=== PATIENT | female | born 1945 | race Caucasian/White ===

== ENCOUNTER 2017-10-10 13:38 | Emergency (ER) | payer OTHER, MEDICARE ==
[~2017-10-10] VITALS: Ht 175.3 cm; Wt 85.7 kg
--- OUTSIDE RECORDS SUMMARY | 2017-10-10 13:44 | XMS REPORT ---
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 Name Role Phone Galdino Lim PCP Unavailable Allergies and Adverse Reactions Name Reaction Notes NO KNOWN DRUG ALLERGIES Plan of Treatment Planned Activity Comments Planned Date Planned Time Plan/Goal COMPLETE CBC W/AUTO DIFF WBC 09/18/2015 12:00 AM COMPREHEN METABOLIC PANEL 09/18/2015 12:00 AM LIPID PANEL 09/18/2015 12:00 AM GLYCOSYLATED HEMOGLOBIN TEST 09/18/2015 12:00 AM Medications Active Name Start Date Estimated Completion Date SIG Comments Fish Oil 1,000 mg oral capsule take 2 capsules by oral route daily magnesium 100 mg oral capsule take 1 capsule by oral route daily Crestor 5 mg oral tablet take 1 tablet (5 mg) by oral route once daily Onglyza 5 mg oral tablet take 1 tablet (5 mg) by oral route once daily for 30 days metformin 500 mg oral tablet 02/27/2014 TAKE 1 TABLET BY MOUTH ONCE A DAY IN THE MORNING AND 2 IN THE EVENING metformin 500 mg oral tablet 08/01/2014 TAKE 1 TABLET BY MOUTH IN THE MORNING AND 2 TABS IN THE EVENING Tricor 145 mg oral tablet 08/13/2014 take 1 tablet (145 mg) by oral route once daily for 90 days Accu-Chek Compact Plus Test miscellaneous strip 10/01/2014 test BS daily lisinopril-hydrochlorothiazide 20-25 mg oral tablet 10/09/2014 TAKE 1 TABLET ONCE A DAY IN THE MORNING Zetia 10 mg oral tablet 10/09/2014 01/02/2016 TAKE 1 TABLET BY MOUTH ONCE A DAY Lexapro 10 mg oral tablet 12/23/2014 12/18/2015 take 1 tablet by oral route daily for 90 days metformin 500 mg oral tablet 12/31/2014 TAKE 1 TABLET BY MOUTH IN THE MORNING AND 2 TABS IN THE EVENING Farxiga 10 mg oral tablet 04/28/2015 take 1 tablet (10 mg) by oral route once daily in the morning Lexapro 20 mg oral tablet 05/01/2015 take 1 tablet (20 mg) by oral route once daily for 90 days metformin 500 mg oral tablet 05/30/2015 TAKE 1 TABLET BY MOUTH IN THE MORNING AND 2 TABS IN THE EVENING cyclobenzaprine 10 mg oral tablet 06/05/2015 TAKE ONE TABLET BY MOUTH EVERY 8 HOURS NEEDED fenofibrate nanocrystallized 145 mg oral tablet 09/09/2015 TAKE 1 TABLET BY MOUTH ONCE A DAY Name Start Date Expiration Date SIG Comments Kayexalate Oral Powder 03/10/2010 03/11/2010 take 30 gms today. Flexeril 10 mg oral tablet 09/07/2010 01/05/2011 take 1 tablet (10 mg) by oral route 3 times per day for 30 days cyclobenzaprine 10 mg oral tablet 09/06/2011 10/06/2011 TAKE 1 TABLET BY MOUTH THREE TIMES A DAY Zithromax Z-Tyrese 250 mg oral tablet 10/18/2011 10/28/2011 take 2 tablets (500 mg) by oral route once daily for 1 day then 1 tablet (250 mg) by oral route once daily for 4 days Accu-Chek Compact Test Miscellaneous Strip 01/03/2012 02/02/2012 CHECK ONCE DAILY amoxicillin 500 mg oral capsule 01/31/2012 02/10/2012 take 2 capsules by oral route 3 times a day for 5 days lisinopril-hydrochlorothiazide 20-25 mg oral tablet 03/14/2012 04/13/2012 TAKE 1 TABLET ONCE A DAY IN THE MORNING Accu-Chek Softclix Lancets Miscellaneous Misc 05/30/2012 05/20/2014 test BS dailyICD-9 250.00 Trilipix 135 mg oral capsule,delayed release(DR/EC) 08/09/2012 09/08/2012 TAKE 1 CAPSULE BY MOUTH ONCE A DAY metformin 500 mg oral tablet 08/06/2013 09/05/2013 TAKE 1 TABLET BY MOUTH DAILY IN THE MORNING AND 2 IN THE EVENING Tricor 145 mg oral tablet 10/17/2013 10/12/2014 take 1 tablet (145 mg) by oral route once daily for 90 days Discontinued Name Start Date Discontinued Date SIG Comments potassium 99 mg oral tablet 03/10/2010 take 1 tablet by oral route daily Hair Vitamins Oral Tablet 05/18/2013 take 1 tablet by oral route once daily with food indomethacin 50 mg oral capsule 03/05/2010 05/18/2013 take 1 capsule by oral route 3 times a day as needed Lipitor 20 mg oral tablet 09/07/2010 07/26/2011 take 1 tablet (20 mg) by once a week. Crestor 10 mg oral tablet 05/24/2011 07/26/2011 take 1 tablet by oral route every other day tramadol 50 mg oral tablet 07/26/2011 05/18/2013 take 1 tablet (50 mg) by oral route every 4-6 hours as needed Zetia 10 mg oral tablet 10/04/2012 take 1 tablet (10 mg) by oral route once daily deleted Lipitor 20 mg oral tablet 03/16/2013 06/06/2013 take 1 tablet (20 mg) by oral route once daily Januvia 100 mg oral tablet 06/06/2013 09/09/2014 take 1 tablet (100 mg) by oral route once daily Zithromax Z-Tyrese 250 mg oral tablet 09/12/2013 10/17/2013 take 2 tablets (500 mg) by oral route once daily for 1 day then 1 tablet (250 mg) by oral route once daily for 4 days Problem List Description Status Onset Diabetes Mellitus, Type II Active Heart disease Active Hypertension Active Hyperlipidemia Active Vital Signs Date Time BP-Sys(mm[Hg] BP-Rebecca(mm[Hg]) HR(bpm) RR(rpm) Temp WT HT HC BMI BSA BMI Percentile O2 Sat(%) 04/24/2015 3:34:00 PM 138 mmHg 70 mmHg 87 bpm 16 rpm 99.1 F 180 lbs 69.5 in 26.20 kg/m2 2.00 m2 96 % 12/23/2014 2:44:00 PM 118 mmHg 62 mmHg 88 bpm 18 rpm 97.1 F 182 lbs 69.5 in 26.4911 kg/m 2.012 m 10/09/2014 9:40:00 AM 152 mmHg 74 mmHg 80 bpm 18 rpm 98.2 F 186.375 lbs 69.5 in 27.13 kg/m2 2.04 m2 97 % 09/09/2014 11:09:00 AM 130 mmHg 64 mmHg 64 bpm 16 rpm 98.8 F 188 lbs 69.5 in 27.3644 kg/m 2.0449 m 03/04/2014 9:11:00 AM 134 mmHg 72 mmHg 78 bpm 18 rpm 98.1 F 187 lbs 69.5 in 27.22 kg/m2 2.04 m2 11/14/2013 9:45:00 AM 126 mmHg 72 mmHg 80 bpm 18 rpm 98.2 F 184 lbs 69.5 in 26.7822 kg/m 2.023 m 10/17/2013 8:49:00 AM 134 mmHg 72 mmHg 88 bpm 18 rpm 99.1 F 183 lbs 69.5 in 26.64 kg/m2 2.02 m2 09/12/2013 9:54:00 AM 148 mmHg 74 mmHg 94 bpm 20 rpm 97.4 F 181 lbs 69.5 in 26.3456 kg/m 2.0065 m 06/06/2013 10:13:00 AM 140 mmHg 82 mmHg 78 bpm 18 rpm 98.4 F 182 lbs 69.5 in 26.49 kg/m2 2.01 m2 05/18/2013 9:26:00 AM 138 mmHg 82 mmHg 80 bpm 18 rpm 98.2 F 187 lbs 69.5 in 27.2189 kg/m 2.0394 m 03/16/2013 11:24:00 AM 136 mmHg 78 mmHg 80 bpm 18 rpm 98.2 F 186 lbs 69.5 in 27.07 kg/m2 2.03 m2 11/15/2012 10:07:00 AM 138 mmHg 80 mmHg 82 bpm 18 rpm 98.5 F 189 lbs 69.5 in 27.51 kg/m 2.0503 m 07/12/2012 9:45:00 AM 138 mmHg 80 mmHg 78 bpm 18 rpm 97.8 F 190 lbs 69.5 in 27.66 kg/m2 2.06 m2 03/01/2012 10:46:00 AM 128 mmHg 72 mmHg 03/01/2012 10:19:00 AM 144 mmHg 68 mmHg 82 bpm 20 rpm 98.8 F 195 lbs 69.5 in 28.38 kg/m2 2.08 m2 01/31/2012 10:24:00 AM 142 mmHg 88 mmHg 01/31/2012 9:57:00 AM 154 mmHg 78 mmHg 92 bpm 20 rpm 97.6 F 194 lbs 69.5 in 28.24 kg/m2 2.08 m2 2011 10:04:00 AM 160 mmHg 78 mmHg 82 bpm 20 rpm 99.3 F 197 lbs 69.5 in 28.6744 kg/m 2.0933 m 10/18/2011 9:15:00 AM 154 mmHg 80 mmHg 82 bpm 18 rpm 99 F 196 lbs 69.5 in 28.53 kg/m2 2.09 m2 07/26/2011 2:58:00 PM 130 mmHg 72 mmHg 72 bpm 20 rpm 98.5 F 198 lbs 69.5 in 28.82 kg/m 2.0986 m 05/24/2011 9:36:00 AM 136 mmHg 82 mmHg 88 bpm 20 rpm 98.4 F 196 lbs 09/07/2010 9:39:00 AM 140 mmHg 76 mmHg 88 bpm 20 rpm 98.4 F 194 lbs 03/05/2010 1:54:00 PM 120 mmHg 76 mmHg 68 bpm 18 rpm 97.9 F 193.312 lbs 02/11/2010 8:50:00 AM 148 mmHg 88 mmHg 82 bpm 16 rpm 97.9 F 193 lbs Social History Name Description Comments denies alcohol use lives alone Tobacco Never smoker retired History of Procedures Date Ordered Description Order Status 07/04/2015 12:00 AM MAMMOGRAM BOTH BREASTS Returned 10/18/2011 12:00 AM COMPLETE CBC W/AUTO DIFF WBC Reviewed 10/18/2011 12:00 AM COMPREHEN METABOLIC PANEL Reviewed 10/18/2011 12:00 AM LIPID PANEL Reviewed 10/18/2011 12:00 AM GLYCOSYLATED HEMOGLOBIN TEST Reviewed 2011 12:[address] SOFT TISSUE NECK W/DYE Reviewed 01/31/2012 12:00 AM COMPLETE CBC W/AUTO DIFF WBC Reviewed 01/31/2012 12:00 AM COMPREHEN METABOLIC PANEL Reviewed 01/31/2012 12:00 AM LIPID PANEL Reviewed 01/31/2012 12:00 AM GLYCOSYLATED HEMOGLOBIN TEST Reviewed 07/07/2012 12:00 AM LIPID PANEL Reviewed 07/07/2012 12:00 AM GLYCOSYLATED HEMOGLOBIN TEST Reviewed 07/12/2012 12:00 AM X-RAY EXAM TRUNK SPINE 2 VWS Reviewed 07/20/2012 12:00 AM MAMMOGRAM SCREENING Returned 10/30/2012 12:00 AM COMPLETE CBC W/AUTO DIFF WBC Reviewed 10/30/2012 12:00 AM COMPREHEN METABOLIC PANEL Reviewed 10/30/2012 12:00 AM LIPID PANEL Reviewed 10/30/2012 12:00 AM GLYCOSYLATED HEMOGLOBIN TEST Reviewed 03/13/2013 12:00 AM COMPLETE CBC W/AUTO DIFF WBC Reviewed 03/13/2013 12:00 AM COMPREHEN METABOLIC PANEL Reviewed 03/13/2013 12:00 AM LIPID PANEL Reviewed 03/13/2013 12:00 AM GLYCOSYLATED HEMOGLOBIN TEST Reviewed 01/22/2010 12:00 AM ELECTROCARDIOGRAM COMPLETE Reviewed 01/22/2010 12:00 AM GLYCOSYLATED HEMOGLOBIN TEST Reviewed 07/10/2013 12:00 AM MAMMOGRAM BOTH BREASTS Reviewed 09/03/2013 12:00 AM COMPLETE CBC W/AUTO DIFF WBC Reviewed 09/03/2013 12:00 AM COMPREHEN METABOLIC PANEL Reviewed 09/03/2013 12:00 AM LIPID PANEL Reviewed 09/03/2013 12:00 AM GLYCOSYLATED HEMOGLOBIN TEST Reviewed 03/05/2010 12:00 AM METABOLIC PANEL TOTAL CA Reviewed 03/05/2010 12:00 AM COMPLETE CBC W/AUTO DIFF WBC Reviewed 03/05/2010 12:00 AM ASSAY OF BLOOD/URIC ACID Reviewed 02/11/2014 12:00 AM COMPLETE CBC W/AUTO DIFF WBC Reviewed 02/11/2014 12:00 AM COMPREHEN METABOLIC PANEL Reviewed 02/11/2014 12:00 AM LIPID PANEL Reviewed 02/11/2014 12:00 AM GLYCOSYLATED HEMOGLOBIN TEST Reviewed 10/14/2009 12:00 AM IMMUNIZATION ADMIN Reviewed 10/14/2009 12:00 AM TD VACCINE NO PRSRV 7/> IM Reviewed 09/02/2014 12:00 AM COMPLETE CBC W/AUTO DIFF WBC Reviewed 09/02/2014 12:00 AM COMPREHEN METABOLIC PANEL Reviewed 09/02/2014 12:00 AM LIPID PANEL Reviewed 09/02/2014 12:00 AM GLYCOSYLATED HEMOGLOBIN TEST Reviewed 04/22/2015 12:00 AM COMPLETE CBC W/AUTO DIFF WBC Reviewed 04/22/2015 12:00 AM COMPREHEN METABOLIC PANEL Reviewed 04/22/2015 12:00 AM LIPID PANEL Reviewed 04/22/2015 12:00 AM GLYCOSYLATED HEMOGLOBIN TEST Reviewed Results Summary Data and Description Results 10/21/2011 8:10 AM WBC 5.3 RBC 4.08 HGB 12.60 g/dLHCT 37.70 %MCV 92.0 fLMCH 30.90 pgMCHC 33.40 g/dLRDW CV 13.40 %MPV 10.70 fLPLT 322 %NEUT 46.80 %%LYMP 40.60 %%MONO 6.0 %%EOS 5.30 %%BASO 1.30 %#NEUT 2.48 #LYMP 2.15 #MONO 0.32 #EOS 0.28 #BASO 0.07 GLUCOSE 136.0 mg/dLSODIUM 139.0 mmol/LPOTASSIUM 4.20 mmol/ LCHLORIDE 103.0 mmol/LCO2 26.0 mmol/LBUN 17.0 mg/dLCREATININE 0.80 mg/dLSGOT/ AST 18.0 IU/LSGPT/ALT 20.0 IU/LALK PHOS 51.0 IU/LTOTAL PROTEIN 6.10 g/dLALBUMIN 4.10 g/dLTOTAL BILI 0.40 mg/dLCALCIUM 9.40 mg/dLeGFR >60 mL/min/1.73 [id number] 256.0 mg/dLCHOLESTEROL 244.0 mg/dLHDL 40.0 mg/dLLDL (CALC) 153.0 mg/dL 03/01/2012 8:35 AM WBC 5.3 RBC 4.14 HGB 12.70 g/dLHCT 38.10 %MCV 92.0 fLMCH 30.70 pgMCHC 33.30 g/dLRDW CV 13.30 %MPV 10.60 fLPLT 306 %NEUT 45.70 %%LYMP 38.80 %%MONO 4.90 %%EOS 9.30 %%BASO 1.30 %#NEUT 2.41 #LYMP 2.05 #MONO 0.26 #EOS 0.49 #BASO 0.07 GLUCOSE 146.0 mg/dLSODIUM 139.0 mmol/LPOTASSIUM 4.30 mmol/ LCHLORIDE 102.0 mmol/LCO2 25.0 mmol/LBUN 14.0 mg/dLCREATININE 0.80 mg/dLSGOT/ AST 15.0 IU/LSGPT/ALT 20.0 IU/LALK PHOS 49.0 IU/LTOTAL PROTEIN 5.90 g/dLALBUMIN 4.20 g/dLTOTAL BILI 0.30 mg/dLCALCIUM 9.60 mg/dLeGFR 60 TRIGLYCERIDES 247.0 mg/ dLCHOLESTEROL 239.0 mg/dLHDL 45.0 mg/dLLDL (CALC) 145.0 mg/dL 07/10/2012 8:15 AM WBC 5.6 RBC 4.26 HGB 13.30 g/dLHCT 39.80 %MCV 93.0 fLMCH 31.20 pgMCHC 33.40 g/dLRDW CV 13.40 %MPV 10.60 fLPLT 335 %NEUT 44.60 %%LYMP 39.40 %%MONO 6.60 %%EOS 8.50 %%BASO 0.90 %#NEUT 2.51 #LYMP 2.22 #MONO 0.37 #EOS 0.48 #BASO 0.05 GLUCOSE 147.0 mg/dLSODIUM 138.0 mmol/LPOTASSIUM 4.30 mmol/ LCHLORIDE 101.0 mmol/LCO2 26.0 mmol/LBUN 14.0 mg/dLCREATININE 0.90 mg/dLSGOT/ AST 18.0 IU/LSGPT/ALT 25.0 IU/LALK PHOS 54.0 IU/LTOTAL PROTEIN 6.40 g/dLALBUMIN 4.20 g/dLTOTAL BILI 0.30 mg/dLCALCIUM 9.90 mg/dLeGFR 60 TRIGLYCERIDES 289.0 mg/ dLCHOLESTEROL 231.0 mg/dLHDL 45.0 mg/dLLDL (CALC) 128.0 mg/dL 11/06/2012 8:35 AM GLUCOSE 149.0 mg/dLSODIUM 139.0 mmol/LPOTASSIUM 4.30 mmol/ LCHLORIDE 101.0 mmol/LCO2 24.0 mmol/LBUN 14.0 mg/dLCREATININE 0.80 mg/dLSGOT/ AST 19.0 IU/LSGPT/ALT 23.0 IU/LALK PHOS 61.0 IU/LTOTAL PROTEIN 6.50 g/dLALBUMIN 4.30 g/dLTOTAL BILI 0.40 mg/dLCALCIUM 9.80 mg/dLeGFR 60 TRIGLYCERIDES 265.0 mg/ dLCHOLESTEROL 222.0 mg/dLHDL 39.0 mg/dLLDL (CALC) 130.0 mg/dLWBC 5.6 RBC 4.24 HGB 13.20 g/dLHCT 38.90 %MCV 92.0 fLMCH 31.10 pgMCHC 33.90 g/dLRDW CV 13.20 % MPV 10.40 fLPLT 348 %NEUT 50.30 %%LYMP 38.80 %%MONO 6.80 %%EOS 3.40 %%BASO 0.70 %#NEUT 2.81 #LYMP 2.17 #MONO 0.38 #EOS 0.19 #BASO 0.04 03/14/2013 9:08 AM WBC 5.5 RBC 4.16 HGB 12.60 g/dLHCT 38.20 %MCV 92.0 fLMCH 30.30 pgMCHC 33.0 g/dLRDW CV 13.50 %MPV 10.80 fLPLT 335 %NEUT 48.30 %%LYMP 42.40 %%MONO 5.30 %%EOS 3.30 %%BASO 0.70 %#NEUT 2.63 #LYMP 2.31 #MONO 0.29 #EOS 0.18 #BASO 0.04 GLUCOSE 136.0 mg/dLSODIUM 139.0 mmol/LPOTASSIUM 4.30 mmol/ LCHLORIDE 101.0 mmol/LCO2 27.0 mmol/LBUN 15.0 mg/dLCREATININE 0.80 mg/dLSGOT/ AST 18.0 IU/LSGPT/ALT 19.0 IU/LALK PHOS 53.0 IU/LTOTAL PROTEIN 6.20 g/dLALBUMIN 3.90 g/dLTOTAL BILI 0.40 mg/dLCALCIUM 9.40 mg/dLeGFR 60 TRIGLYCERIDES 217.0 mg/ dLCHOLESTEROL 187.0 mg/dLHDL 43.0 mg/dLLDL (CALC) 101.0 mg/dL 09/04/2013 9:08 AM WBC 5.4 RBC 4.18 HGB 12.90 g/dLHCT 38.50 %MCV 92.0 fLMCH 30.90 pgMCHC 33.50 g/dLRDW CV 13.60 %MPV 11.0 fLPLT 342 %NEUT 50.60 %%LYMP 40.40 %%MONO 4.70 %%EOS 3.0 %%BASO 1.30 %#NEUT 2.71 #LYMP 2.16 #MONO 0.25 #EOS 0.16 #BASO 0.07 GLUCOSE 119.0 mg/dLSODIUM 137.0 mmol/LPOTASSIUM 4.60 mmol/ LCHLORIDE 101.0 mmol/LCO2 26.0 mmol/LBUN 15.0 mg/dLCREATININE 0.80 mg/dLSGOT/ AST 19.0 IU/LSGPT/ALT 24.0 IU/LALK PHOS 59.0 IU/LTOTAL PROTEIN 6.20 g/dLALBUMIN 4.30 g/dLTOTAL BILI 0.50 mg/dLCALCIUM 10.0 mg/dLeGFR >60 mL/min/1.73 [id number] 182.0 mg/dLCHOLESTEROL 192.0 mg/dLHDL 45.0 mg/dLLDL (CALC) 111.0 mg/dLEst Avg Glucose 157.1 mg/dL 02/20/2014 9:20 AM GLUCOSE 122.0 mg/dLSODIUM 137.0 mmol/LPOTASSIUM 4.30 mmol/ LCHLORIDE 103.0 mmol/LCO2 26.0 mmol/LBUN 16.0 mg/dLCREATININE 0.80 mg/dLSGOT/ AST 22.0 IU/LSGPT/ALT 21.0 IU/LALK PHOS 56.0 IU/LTOTAL PROTEIN 6.40 g/dLALBUMIN 4.10 g/dLTOTAL BILI 0.60 mg/dLCALCIUM 9.30 mg/dLeGFR 60 TRIGLYCERIDES 176.0 mg/ dLCHOLESTEROL 187.0 mg/dLHDL 48.0 mg/dLLDL (CALC) 104.0 mg/dLEst Avg Glucose 165.7 mg/dLWBC 4.8 RBC 4.29 HGB 13.20 g/dLHCT 39.20 %MCV 91.0 fLMCH 30.80 pgMCHC 33.70 g/dLRDW CV 14.0 %MPV 11.70 fLPLT 285 %NEUT 53.40 %%LYMP 36.70 %% MONO 6.20 %%EOS 2.70 %%BASO 1.0 %#NEUT 2.57 #LYMP 1.77 #MONO 0.30 #EOS 0.13 # BASO 0.05 09/04/2014 8:38 AM WBC 5.6 RBC 4.24 HGB 12.90 g/dLHCT 39.40 %MCV 93.0 fLMCH 30.40 pgMCHC 32.70 g/dLRDW CV 13.50 %MPV 10.70 fLPLT 297 %NEUT 51.10 %%LYMP 38.60 %%MONO 5.40 %%EOS 3.80 %%BASO 1.10 %#NEUT 2.86 #LYMP 2.16 #MONO 0.30 #EOS 0.21 #BASO 0.06 Est Avg Glucose 165.7 mg/dLGLUCOSE 135.0 mg/dLSODIUM 137.0 mmol/ LPOTASSIUM 4.20 mmol/LCHLORIDE 101.0 mmol/LCO2 26.0 mmol/LBUN 22.0 mg/ dLCREATININE 0.90 mg/dLSGOT/AST 18.0 IU/LSGPT/ALT 19.0 IU/LALK PHOS 52.0 IU/ LTOTAL PROTEIN 6.40 g/dLALBUMIN 4.10 g/dLTOTAL BILI 0.10 mg/dLCALCIUM 9.40 mg/ dLeGFR 60 TRIGLYCERIDES 159.0 mg/dLCHOLESTEROL 182.0 mg/dLHDL 36.0 mg/dLLDL ( CALC) 114.0 mg/dL 12/20/2014 8:38 AM GLUCOSE 138.0 mg/dLSODIUM 139.0 mmol/LPOTASSIUM 4.40 mmol/ LCHLORIDE 102.0 mmol/LCO2 26.0 mmol/LBUN 22.0 mg/dLCREATININE 0.90 mg/dLSGOT/ AST 18.0 IU/LSGPT/ALT 18.0 IU/LALK PHOS 54.0 IU/LTOTAL PROTEIN 6.40 g/dLALBUMIN 4.20 g/dLTOTAL BILI 0.40 mg/dLCALCIUM 9.60 mg/dLeGFR >60 mL/min/1.73 m2WBC 5.6 RBC 4.46 HGB 13.30 g/dLHCT 41.40 %MCV 93.0 fLMCH 29.80 pgMCHC 32.10 g/dLRDW CV 13.80 %MPV 10.60 fLPLT 323 %NEUT 54.60 %%LYMP 37.20 %%MONO 4.10 %%EOS 3.20 %% BASO 0.90 %#NEUT 3.08 #LYMP 2.10 #MONO 0.23 #EOS 0.18 #BASO 0.05 Est Avg Glucose 174.3 mg/dLTRIGLYCERIDES 257.0 mg/dLCHOLESTEROL 192.0 mg/dLHDL 41.0 mg/ dLLDL (CALC) 100.0 mg/dL 04/23/2015 8:17 AM WBC 6.0 RBC 4.43 HGB 13.50 g/dLHCT 40.60 %MCV 92.0 fLMCH 30.50 pgMCHC 33.30 g/dLRDW CV 14.0 %MPV 10.40 fLPLT 315 %NEUT 58.10 %%LYMP 32.20 %%MONO 5.50 %%EOS 3.0 %%BASO 1.20 %#NEUT 3.51 #LYMP 1.94 #MONO 0.33 #EOS 0.18 #BASO 0.07 TRIGLYCERIDES 200.0 mg/dLCHOLESTEROL 191.0 mg/dLHDL 43.0 mg/ dLLDL (CALC) 108.0 mg/dLGLUCOSE 141.0 mg/dLSODIUM 137.0 mmol/LPOTASSIUM 4.10 mmol/LCHLORIDE 101.0 mmol/LCO2 24.0 mmol/LBUN 22.0 mg/dLCREATININE 0.80 mg/ dLSGOT/AST 18.0 IU/LSGPT/ALT 16.0 IU/LALK PHOS 59.0 IU/LTOTAL PROTEIN 6.20 g/ dLALBUMIN 4.0 g/dLTOTAL BILI 0.50 mg/dLCALCIUM 9.30 mg/dLeGFR >60 mL/min/1.73 [id number]. Avg Glu (eAG) 154 mg/dL History Of Immunizations Not available. History of Past Illness Name Date of Onset Comments Diabetes Mellitus, Type II Hypertension Heart disease Td Oct 14 2009 4:38PM pre-operative examination, unspecified Jan 22 2010 4:46PM Diabetes Mellitus, Type II Jan 22 2010 5:05PM Preoperative Examination Feb 11 2010 8:53AM Hyperlipidemia Diabetes Mellitus, Type II Mar 05 2010 1:56PM Gout Mar 05 2010 1:56PM Hyperlipidemia, unspecified Sep 07 2010 9:41AM Diabetes Mellitus, Type II Sep 07 2010 9:41AM Hypertension May 24 2011 9:36AM Hyperlipidemia, unspecified May 24 2011 9:36AM Diabetes Mellitus, Type II May 24 2011 9:36AM Hyperlipidemia, unspecified Jul 26 2011 2:57PM Diabetes Mellitus, Type II Jul 26 2011 2:57PM Low Back Pain Jul 26 2011 2:57PM Diabetes Mellitus, Type II Oct 18 2011 9:19AM Lymph Nodes, Enlarged, neck 2011 10:08AM Diabetes Mellitus, Type II Jan 31 2012 10:03AM Hypertension Jan 31 2012 10:03AM Essential Hypertension Mar 01 2012 10:22AM Hyperlipidemia Mar 01 2012 10:22AM Diabetes Mellitus, Type II Mar 01 2012 10:22AM Otitis Media, Acute Jan 31 2012 10:03AM Hypertension Jul 07 2012 11:40AM Diabetes Mellitus, Type II Jul 07 2012 11:40AM Hyperlipidemia Jul 07 2012 11:40AM Back Pain with Radiation Jul 12 2012 9:50AM Screening Mammogram Jul 20 2012 8:49AM Hypertension Oct 30 2012 9:29AM Diabetes Mellitus, Type II Oct 30 2012 9:29AM Hyperlipidemia Oct 30 2012 9:29AM Diabetes Mellitus, Type II Nov 15 2012 10:10AM Hypertension Nov 15 2012 10:10AM Hyperlipidemia Nov 15 2012 10:10AM Hypertension Mar 13 2013 11:55AM Diabetes Mellitus, Type II Mar 13 2013 11:55AM Hyperlipidemia Mar 13 2013 11:55AM Hyperlipidemia, unspecified Mar 16 2013 11:26AM Diabetes Mellitus, Type II Mar 16 2013 11:26AM Diabetes Mellitus, Type II May 18 2013 9:31AM Diabetes Mellitus, Type II Jun 06 2013 10:17AM Screening Mammogram Jul 10 2013 11:32AM Hypertension Sep 03 2013 10:04AM Diabetes Mellitus, Type II Sep 03 2013 10:04AM Hyperlipidemia Sep 03 2013 10:04AM Upper Respiratory Infection Sep 12 2013 9:59AM Hyperlipidemia, unspecified Sep 12 2013 9:59AM Diabetes Mellitus, Type II Sep 12 2013 9:59AM Hyperlipidemia, unspecified Oct 17 2013 8:54AM Diabetes Mellitus, Type II Oct 17 2013 8:54AM Depression and anxiety Oct 17 2013 8:54AM Depression and anxiety Nov 14 2013 9:51AM Hypertension Feb 11 2014 1:55PM Diabetes Mellitus, Type II Feb 11 2014 1:55PM Hyperlipidemia Feb 11 2014 1:55PM Hypertension Mar 04 2014 9:16AM Hyperlipidemia, unspecified Mar 04 2014 9:16AM Diabetes Mellitus, Type II, Uncontrolled Mar 04 2014 9:16AM Depression and anxiety Mar 04 2014 9:16AM Coronary Artery Disease Sep 02 2014 2:12PM Hypertension Sep 02 2014 2:12PM Diabetes Mellitus, Type II Sep 02 2014 2:12PM Hyperlipidemia, unspecified Sep 09 2014 11:15AM Diabetes Mellitus, Type II Sep 09 2014 11:15AM Hypertension Oct 09 2014 9:44AM Hyperlipidemia, unspecified Oct 09 2014 9:44AM Diabetes Mellitus, Type II Oct 09 2014 9:44AM Hyperlipidemia, unspecified Dec 23 2014 2:49PM Diabetes Mellitus, Type II Dec 23 2014 2:49PM Depression and anxiety Dec 23 2014 2:49PM Hypertension Apr 22 2015 3:57PM Diabetes Mellitus, Type II Apr 22 2015 3:57PM Hyperlipidemia Apr 22 2015 3:57PM Diabetes Mellitus, Type II Apr 24 2015 3:36PM Special screening for malignant neoplasms; breast; other screening mammogram Jul 04 2015 11:56AM Hypertension Sep 18 2015 2:30PM Diabetes Mellitus, Type II Sep 18 2015 2:30PM Hyperlipidemia Sep 18 2015 2:30PM Payers Insurance Name Company Name Plan Name Plan Number Policy Number Policy Group Number Start Date Medicare Part A Medicare Part A [id number] N/A [employer] [id number] Thursday, 2014 [facility] [id number] N/A [employer] Medicare Supplement [employer] [id number] Sunday, 2013 [employer] [facility] [id number] November [facility] [id number] Saturday, 2009 [employer] [facility] [id number] Tuesday, 2011 Medicare Part B [employer] [place] [id number] Monday, 2011 [employer] [id number] Tuesday, 2011 History of Encounters Visit Date Visit Type Provider 04/24/2015 Office visit Galdino Lim MD 12/23/2014 Office visit Galdino Lim MD 10/09/2014 Office visit Galdino Lim MD 09/09/2014 Office visit Galdino Lim MD 03/04/2014 Office visit Galdino Lim MD 11/14/2013 Office visit Galdino Lim MD 10/17/2013 Office visit Galdino Lim MD 09/12/2013 Office visit Galdino Lim MD 06/06/2013 Office visit Galdino Lim MD 05/18/2013 Office visit Galdino Lim MD 03/16/2013 Office visit Galdino Lim MD 11/15/2012 Office visit Galdino Lim MD 07/12/2012 Office visit Galdino Lim MD 03/01/2012 Office visit Galdino Lim MD 01/31/2012 Office visit Galdino Lim MD 2011 Office visit Galdino Lim MD 10/18/2011 Office visit Galdino Lim MD 07/26/2011 Office visit Galdino Lim MD 05/24/2011 Office visit Galdino Lim MD 09/07/2010 Office visit Galdino Lim MD 03/05/2010 Office visit Galdino Lim MD 02/11/2010 Laboratory Severino Lopez MD 02/11/2010 Office visit Galdino Lim MD 10/14/2009 Nurse visit Galdino Lim MD 08/25/2009 Office visit Galdino Lim MD 08/20/2009 Laboratory Galdino Lim MD
--- OUTSIDE RECORDS SUMMARY | 2017-10-10 13:45 | XMS REPORT ---
Author Author Galdino iLm [facility] Address [address] [place], [place] [id number] Care Team Providers Care Squad Boss Name Role Phone Galdino Lim PCP Unavailable Galdino Lim PreferredProvider Unavailable Allergies and Adverse Reactions Name Reaction Notes NO KNOWN DRUG ALLERGIES Plan of Treatment Planned Activity Comments Planned Date Planned Time Plan/Goal MRI LOWER EXT ANY JOINT W/O CONTRAST 12/29/2015 12:00 AM CMP (comprehensive metabolic panel) 10/14/2016 12:00 AM CBC with Auto 07/21/2017 12:00 AM CMP (comprehensive metabolic panel) 07/21/2017 12:00 AM Lipid profile 07/21/2017 12:00 AM Hemoglobin A1C 07/21/2017 12:00 AM Medications Active Name Start Date Estimated Completion Date SIG Comments Onglyza 5 mg oral tablet take 1 tablet (5 mg) by oral route once daily for 30 days metformin 500 mg oral tablet 02/27/2014 TAKE 1 TABLET BY MOUTH ONCE A DAY IN THE MORNING AND 2 IN THE EVENING metformin 500 mg oral tablet 08/01/2014 TAKE 1 TABLET BY MOUTH IN THE MORNING AND 2 TABS IN THE EVENING lisinopril-hydrochlorothiazide 20-25 mg oral tablet 10/09/2014 TAKE 1 TABLET ONCE A DAY IN THE MORNING metformin 500 mg oral tablet 12/31/2014 TAKE 1 TABLET BY MOUTH IN THE MORNING AND 2 TABS IN THE EVENING metformin 500 mg oral tablet 05/30/2015 TAKE 1 TABLET BY MOUTH IN THE MORNING AND 2 TABS IN THE EVENING cyclobenzaprine 10 mg oral tablet 10/08/2015 TAKE ONE TABLET BY MOUTH EVERY 8 HOURS NEEDED Zetia 10 mg oral tablet 11/03/2015 TAKE 1 TABLET BY MOUTH ONCE A DAY metformin 500 mg oral tablet 11/24/2015 TAKE 1 TABLET BY MOUTH IN THE MORNING AND 2 TABS IN THE EVENING escitalopram oxalate 20 mg oral tablet 05/10/2016 TAKE 1 TABLET BY MOUTH ONCE A DAY metformin 500 mg oral tablet 07/05/2016 TAKE 1 TABLET BY MOUTH IN THE MORNING AND 2 TABS IN THE EVENING cyclobenzaprine 10 mg oral tablet 09/06/2016 TAKE ONE TABLET BY MOUTH EVERY 8 HOURS NEEDED fenofibrate 160 mg oral tablet 2016 10/27/2017 take 1 tablet (160 mg) by oral route once daily for 90 days Zetia 10 mg oral tablet 11/10/2016 TAKE 1 TABLET BY MOUTH ONCE A DAY Lipitor 20 mg oral tablet 11/10/2016 take 1 tablet (20 mg) by oral route once daily for 30 days lisinopril 20 mg oral tablet take 1 tablet (20 mg) by oral route once daily Lidoderm 5 % topical adhesive patch,medicated apply 1 patch by transdermal route once daily (May wear up to 12hours.) polyethylene glycol 3350 17 gram/dose oral powder take 17 gram mixed with 8 oz. water, juice, soda, coffee or tea by oral route once daily hydrocodone-acetaminophen 5-325 mg oral tablet take 1 tablet by oral route every 4 hours as needed for pain atorvastatin 10 mg oral tablet take 1 tablet (10 mg) by oral route once daily at bedtime aspirin 325 mg oral tablet take 1 tablet by oral route 2 times a day lisinopril-hydrochlorothiazide 20-25 mg oral tablet 01/18/2017 TAKE 1 TABLET BY MOUTH IN THE MORNING metformin 500 mg oral tablet 01/18/2017 TAKE 1 TABLET BY MOUTH IN THE MORNING AND 2 TABS IN THE EVENING True Metrix Glucose Meter miscellaneous [facility] [place] 02/01/2017 use as directed. Test blood sugars daily. ICD-10 E11.9 True Metrix test strips 02/01/2017 12/28/2017 test blood sugars daily. ICD-10 E11.9 True Metrix lancets 02/01/2017 test blood sugars daily. ICD-10 E11.9 fenofibrate 160 mg oral tablet 03/24/2017 TAKE 1 TABLET BY MOUTH ONCE A DAY escitalopram oxalate 20 mg oral tablet 05/23/2017 TAKE 1 TABLET BY MOUTH ONCE A DAY Januvia 100 mg oral tablet 06/07/2017 01/03/2018 take 1 tablet (100 mg) by oral route once daily for 30 days Name Start Date Expiration Date SIG Comments [...] 3 times a day for 5 days Accu-Chek Softclix Lancets Miscellaneous Mis 05/30/2012 05/20/2014 test BS dailyICD-9 250.00 Trilipix 135 mg oral capsule,delayed release(DR/EC) 08/09/2012 09/08/2012 TAKE 1 CAPSULE BY MOUTH ONCE A DAY metformin 500 mg oral tablet 08/06/2013 09/05/2013 TAKE 1 TABLET BY MOUTH DAILY IN THE MORNING AND 2 IN THE EVENING Tricor 145 mg oral tablet 10/17/2013 10/12/2014 take 1 tablet (145 mg) by oral route once daily for 90 days Zetia 10 mg oral tablet 10/09/2014 01/02/2016 TAKE 1 TABLET BY MOUTH ONCE A DAY Lexapro 10 mg oral tablet 12/23/2014 12/18/2015 take 1 tablet by oral route daily for 90 days Lipitor 20 mg oral tablet 10/08/2015 02/05/2016 take 1 tablet (20 mg) by oral route once daily for 30 days Bactrim DS 800-160 mg oral tablet 01/19/2016 01/26/2016 take 1 tablet by oral route every 12 hours for 7 days Diflucan 150 mg oral tablet 03/15/2016 03/25/2016 take 1 tablet (150 mg) by oral route once for 2 days Hylafem 05/10/2016 as directed Januvia 100 mg oral tablet 12/08/2016 12/03/2017 take 1 tablet (100 mg) by oral route once daily for 30 days citalopram 20 mg oral tablet take 2 tablets (40 mg) by oral route once daily Discontinued Name Start Date Discontinued Date SIG Comments Fish Oil 1,000 mg oral capsule 01/13/2017 take 2 capsules by oral route daily d/c'd at hospital magnesium 100 mg oral capsule 01/13/2017 take 1 capsule by oral route daily d/c'd in hospital potassium 99 mg oral tablet 03/10/2010 take [...] mg) by oral route once daily deleted lisinopril-hydrochlorothiazide 20-25 mg oral tablet 03/14/2012 01/13/2017 TAKE 1 TABLET ONCE A DAY IN THE MORNING d/c'd in hospital Lipitor 20 mg oral tablet 03/16/2013 06/06/2013 [...] oral route once daily for 4 days Tricor 145 mg oral tablet 08/13/2014 12/23/2015 take 1 tablet (145 mg) by oral route once daily for 90 days Accu-Chek Compact Plus Test miscellaneous strip 10/01/2014 02/01/2017 test BS daily Lexapro 20 mg oral tablet 05/01/2015 01/13/2017 take 1 tablet (20 mg) by oral route once daily for 90 days Lexapro 20 mg oral tablet 05/01/2015 01/13/2017 take 1 tablet (20 mg) by oral route once daily for 90 days d/c'd in hospital lisinopril-hydrochlorothiazide 20-25 mg oral tablet 01/05/2016 01/13/2017 TAKE 1 TABLET ONCE A DAY IN THE MORNING lisinopril-hydrochlorothiazide 20-25 mg oral tablet 01/05/2016 01/13/2017 TAKE 1 TABLET ONCE A DAY IN THE MORNING d/c'd at hospital sulfamethoxazole-trimethoprim 800-160 mg oral tablet 03/02/2016 03/15/2016 TAKE 1 TABLET BY MOUTH EVERY 12 HOURS FOR 7 DAYS Problem List Description Status Onset Diabetes Mellitus, Type II Active Heart disease Active Hypertension Active Hyperlipidemia Active Vital Signs Date Time BP-Sys(mm[Hg] BP-Rebecca(mm[Hg]) HR(bpm) RR(rpm) Temp WT HT HC BMI BSA BMI Percentile O2 Sat(%) 01/13/2017 11:07:00 AM 116 mmHg 68 mmHg 88 bpm 18 rpm 97.6 F 69 in 96 % 12/08/2016 11:27:00 AM 118 mmHg 70 mmHg 78 bpm 16 rpm 98.1 F 188 lbs 69 in 27.7625 kg/m 2.0375 m 97 % 10/21/2016 9:47:00 AM 128 mmHg 66 mmHg 88 bpm 18 rpm 98.2 F 183 lbs 69 in 27.02 kg/m2 2.01 m2 95 % 05/06/2016 1:31:00 PM 130 mmHg 62 mmHg 94 bpm 18 rpm 98.1 F 186.25 lbs 69 in 27.504 kg/m 2.028 m 95 % 03/15/2016 1:25:00 PM 110 mmHg 58 mmHg 93 bpm 16 rpm 98.5 F 182 lbs 69 in 26.88 kg/m2 2.00 m2 96 % 12/23/2015 9:33:00 AM 122 mmHg 70 mmHg 87 bpm 16 rpm 9.3 F 186 lbs 69 in 27.4671 kg/m 2.0267 m 98 % 12/03/2015 5:19:00 PM 132 mmHg 64 mmHg 96 bpm 18 rpm 98.5 F 184.5 lbs 69.5 in 26.85 kg/m2 2.03 m2 95 % 10/08/2015 10:08:00 AM 138 mmHg 70 mmHg 84 bpm 18 rpm 98 F 183 lbs 69.5 in 26.6367 kg/m 2.0175 m 97 % 04/24/2015 3:34:00 PM 138 mmHg 70 mmHg [...] Status 07/04/2015 12:00 AM MAMMOGRAM BOTH BREASTS Reviewed 09/18/2015 12:00 AM COMPLETE CBC W/AUTO DIFF WBC Reviewed 09/18/2015 12:00 AM COMPREHEN METABOLIC PANEL Reviewed 09/18/2015 12:00 AM LIPID PANEL Reviewed 09/18/2015 12:00 AM GLYCOSYLATED HEMOGLOBIN TEST Reviewed 12/03/2015 12:00 AM COMPLETE CBC W/AUTO DIFF WBC Reviewed 12/03/2015 12:00 AM COMPREHEN METABOLIC PANEL Reviewed 12/03/2015 12:00 AM FIBRIN DEGRADATION QUANT Reviewed 12/03/2015 12:00 AM X-RAY EXAM OF LOWER LEG Reviewed 03/15/2016 12:00 AM COMPLETE CBC W/AUTO DIFF WBC Reviewed 03/15/2016 12:00 AM COMPREHEN METABOLIC PANEL Reviewed 03/15/2016 12:00 AM GLYCOSYLATED HEMOGLOBIN TEST Reviewed 10/18/2011 12:00 AM COMPLETE CBC W/AUTO DIFF WBC Reviewed 10/18/2011 12:00 AM COMPREHEN METABOLIC PANEL Reviewed 10/18/2011 12:00 AM LIPID PANEL Reviewed 10/18/2011 12:00 AM GLYCOSYLATED HEMOGLOBIN TEST Reviewed 2011 12:[address] SOFT TISSUE NECK W/DYE Reviewed 10/14/2016 12:00 AM COMPLETE CBC W/AUTO DIFF WBC Reviewed 10/14/2016 12:00 AM LIPID PANEL Reviewed 10/14/2016 12:00 AM GLYCOSYLATED HEMOGLOBIN TEST Reviewed 01/31/2012 12:00 AM COMPLETE CBC W/AUTO DIFF WBC Reviewed 01/31/2012 12:00 AM COMPREHEN METABOLIC PANEL Reviewed 01/31/2012 12:00 AM LIPID PANEL Reviewed 01/31/2012 12:00 AM GLYCOSYLATED HEMOGLOBIN TEST Reviewed 07/07/2012 12:00 AM LIPID PANEL Reviewed 07/07/2012 12:00 AM GLYCOSYLATED HEMOGLOBIN TEST Reviewed 07/12/2012 12:00 AM X-RAY EXAM TRUNK SPINE 2 VWS Reviewed 07/20/2012 12:00 AM MAMMOGRAM SCREENING Reviewed 10/30/2012 12:00 AM ROUTINE VENIPUNCTURE Reviewed 10/30/2012 12:00 AM COMPLETE CBC W/AUTO DIFF WBC Reviewed 10/30/2012 12:00 AM COMPREHEN METABOLIC PANEL Reviewed 10/30/2012 12:00 AM LIPID PANEL Reviewed 10/30/2012 12:00 AM GLYCOSYLATED HEMOGLOBIN TEST Reviewed 03/13/2013 12:00 AM ROUTINE VENIPUNCTURE Reviewed 03/13/2013 12:00 AM COMPLETE CBC W/AUTO DIFF WBC Reviewed 03/13/2013 12:00 AM COMPREHEN METABOLIC PANEL Reviewed 03/13/2013 12:00 AM LIPID PANEL Reviewed 03/13/2013 12:00 AM GLYCOSYLATED HEMOGLOBIN TEST Reviewed 01/22/2010 12:00 AM ELECTROCARDIOGRAM COMPLETE Reviewed 01/22/2010 12:00 AM GLYCOSYLATED HEMOGLOBIN TEST Reviewed 07/10/2013 12:00 AM MAMMOGRAM BOTH BREASTS Reviewed 09/03/2013 12:00 AM ROUTINE VENIPUNCTURE Reviewed 09/03/2013 12:00 AM COMPLETE CBC W/AUTO DIFF WBC Reviewed 09/03/2013 12:00 AM COMPREHEN METABOLIC PANEL Reviewed 09/03/2013 12:00 AM LIPID PANEL Reviewed 09/03/2013 12:00 AM GLYCOSYLATED HEMOGLOBIN TEST Reviewed 03/05/2010 12:00 AM METABOLIC PANEL TOTAL CA Reviewed 03/05/2010 12:00 AM COMPLETE CBC W/AUTO DIFF WBC Reviewed 03/05/2010 12:00 AM ASSAY OF BLOOD/URIC ACID Reviewed 02/11/2014 12:00 AM ROUTINE VENIPUNCTURE Reviewed 02/11/2014 12:00 AM COMPLETE CBC W/AUTO [...] AM GLYCOSYLATED HEMOGLOBIN TEST Reviewed Results Summary Date and Description Results 10/21/2011 8:10 AM WBC 5.3 RBC 4.08 HGB 12.60 g/dLHCT 37.70 %MCV 92.0 fLMCH 30.90 pgMCHC 33.40 g/dLRDW SD 45 RDW CV 13.40 %MPV 10.70 fLPLT 322 NRBC# 0.00 NRBC% 0.0 %NEUT 46.80 %%LYMP 40.60 %%MONO 6.0 %%EOS 5.30 %%BASO 1.30 %#NEUT 2.48 #LYMP 2.15 #MONO 0.32 #EOS 0.28 #BASO 0.07 MANUAL DIFF NOT IND GLUCOSE 136.0 mg/dLSODIUM 139.0 mmol/LPOTASSIUM 4.20 mmol/LCHLORIDE 103.0 mmol/LCO2 26.0 mmol/LBUN 17.0 mg/dLCREATININE 0.80 mg/dLSGOT/AST 18.0 IU/LSGPT/ALT 20.0 IU /LALK PHOS 51.0 IU/LTOTAL PROTEIN 6.10 g/dLALBUMIN 4.10 g/dLTOTAL BILI 0.40 mg/ dLCALCIUM 9.40 mg/dLAGE 65 GFR NonAA 72 GFR AA 87 eGFR >60 mL/min/1.73 m2eGFR AA * >60 TRIGLYCERIDES 256.0 mg/dLCHOLESTEROL 244.0 mg/dLHDL 40.0 mg/dLTOT CHOL/ HDL 6.1 LDL (CALC) 153.0 mg/dLGLYCOHEMOGLOBIN A1C 7.60 % 03/01/2012 8:35 AM WBC 5.3 RBC 4.14 HGB 12.70 g/dLHCT 38.10 %MCV 92.0 fLMCH 30.70 pgMCHC 33.30 g/dLRDW SD 45 RDW CV 13.30 %MPV 10.60 fLPLT 306 NRBC# 0.00 NRBC% 0.0 %NEUT 45.70 %%LYMP 38.80 %%MONO 4.90 %%EOS 9.30 %%BASO 1.30 %#NEUT 2.41 #LYMP 2.05 #MONO 0.26 #EOS 0.49 #BASO 0.07 MANUAL DIFF NOT IND GLUCOSE 146.0 mg/dLSODIUM 139.0 mmol/LPOTASSIUM 4.30 mmol/LCHLORIDE 102.0 mmol/LCO2 25.0 mmol/LBUN 14.0 mg/dLCREATININE 0.80 mg/dLSGOT/AST 15.0 IU/LSGPT/ALT 20.0 IU /LALK PHOS 49.0 IU/LTOTAL PROTEIN 5.90 g/dLALBUMIN 4.20 g/dLTOTAL BILI 0.30 mg/ dLCALCIUM 9.60 mg/dLAGE 66 GFR NonAA 72 GFR AA 87 eGFR 60 eGFR AA* 60 GLYCOHEMOGLOBIN A1C 7.10 %TRIGLYCERIDES 247.0 mg/dLCHOLESTEROL 239.0 mg/dLHDL 45.0 mg/dLTOT CHOL/HDL 5.3 LDL (CALC) 145.0 mg/dL 07/10/2012 8:15 AM TRIGLYCERIDES 289.0 mg/dLCHOLESTEROL 231.0 mg/dLHDL 45.0 mg/ dLTOT CHOL/HDL 5.1 LDL (CALC) 128.0 mg/dLGLYCOHEMOGLOBIN A1C 7.30 % 11/06/2012 8:35 AM GLUCOSE 149.0 mg/dLSODIUM 139.0 mmol/LPOTASSIUM 4.30 mmol/ LCHLORIDE 101.0 mmol/LCO2 24.0 mmol/LBUN 14.0 mg/dLCREATININE 0.80 mg/dLSGOT/ AST 19.0 IU/LSGPT/ALT 23.0 IU/LALK PHOS 61.0 IU/LTOTAL PROTEIN 6.50 g/dLALBUMIN 4.30 g/dLTOTAL BILI 0.40 mg/dLCALCIUM 9.80 mg/dLAGE 67 GFR NonAA 72 GFR AA 87 eGFR 60 eGFR AA* 60 TRIGLYCERIDES 265.0 mg/dLCHOLESTEROL 222.0 mg/dLHDL 39.0 mg/ dLTOT CHOL/HDL 5.7 LDL (CALC) 130.0 mg/dLWBC 5.6 RBC 4.24 HGB 13.20 g/dLHCT 38.90 %MCV 92.0 fLMCH 31.10 pgMCHC 33.90 g/dLRDW SD 44 RDW CV 13.20 %MPV 10.40 fLPLT 348 NRBC# 0.00 NRBC% 0.0 %NEUT 50.30 %%LYMP 38.80 %%MONO 6.80 %%EOS 3.40 % %BASO 0.70 %#NEUT 2.81 #LYMP 2.17 #MONO 0.38 #EOS 0.19 #BASO 0.04 MANUAL DIFF NOT IND GLYCOHEMOGLOBIN A1C 7.30 % 03/14/2013 9:08 AM WBC 5.5 RBC 4.16 HGB 12.60 g/dLHCT 38.20 %MCV 92.0 fLMCH 30.30 pgMCHC 33.0 g/dLRDW SD 45 RDW CV 13.50 %MPV 10.80 fLPLT 335 NRBC# 0.00 NRBC% 0.0 %NEUT 48.30 %%LYMP 42.40 %%MONO 5.30 %%EOS 3.30 %%BASO 0.70 %#NEUT 2.63 #LYMP 2.31 #MONO 0.29 #EOS 0.18 #BASO 0.04 MANUAL DIFF NOT IND GLUCOSE 136.0 mg/dLSODIUM 139.0 mmol/LPOTASSIUM 4.30 mmol/LCHLORIDE 101.0 mmol/LCO2 27.0 mmol/LBUN 15.0 mg/dLCREATININE 0.80 mg/dLSGOT/AST 18.0 IU/LSGPT/ALT 19.0 IU /LALK PHOS 53.0 IU/LTOTAL PROTEIN 6.20 g/dLALBUMIN 3.90 g/dLTOTAL BILI 0.40 mg/ dLCALCIUM 9.40 mg/dLAGE 67 GFR NonAA 72 GFR AA 87 eGFR 60 eGFR AA* 60 TRIGLYCERIDES 217.0 mg/dLCHOLESTEROL 187.0 mg/dLHDL 43.0 mg/dLTOT CHOL/HDL 4.3 LDL (CALC) 101.0 mg/dLGLYCOHEMOGLOBIN A1C 7.30 % 09/04/2013 9:08 AM WBC 5.4 RBC 4.18 HGB 12.90 g/dLHCT 38.50 %MCV 92.0 fLMCH 30.90 pgMCHC 33.50 g/dLRDW SD 46 RDW CV 13.60 %MPV 11.0 fLPLT 342 NRBC# 0.00 NRBC% 0.0 %NEUT 50.60 %%LYMP 40.40 %%MONO 4.70 %%EOS 3.0 %%BASO 1.30 %#NEUT 2.71 #LYMP 2.16 #MONO 0.25 #EOS 0.16 #BASO 0.07 MANUAL DIFF NOT IND GLUCOSE 119.0 mg/dLSODIUM 137.0 mmol/LPOTASSIUM 4.60 mmol/LCHLORIDE 101.0 mmol/LCO2 26.0 mmol/LBUN 15.0 mg/dLCREATININE 0.80 mg/dLSGOT/AST 19.0 IU/LSGPT/ALT 24.0 IU /LALK PHOS 59.0 IU/LTOTAL PROTEIN 6.20 g/dLALBUMIN 4.30 g/dLTOTAL BILI 0.50 mg/ dLCALCIUM 10.0 mg/dLAGE 67 GFR NonAA 72 GFR AA 87 eGFR >60 mL/min/1.73 m2eGFR AA * >60 TRIGLYCERIDES 182.0 mg/dLCHOLESTEROL 192.0 mg/dLHDL 45.0 mg/dLTOT CHOL/ HDL 4.3 LDL (CALC) 111.0 mg/dLHGB A1C 7.10 %Est Avg Glucose 157.1 mg/dL 02/20/2014 9:20 AM GLUCOSE 122.0 mg/dLSODIUM 137.0 mmol/LPOTASSIUM 4.30 mmol/ LCHLORIDE 103.0 mmol/LCO2 26.0 mmol/LBUN 16.0 mg/dLCREATININE 0.80 mg/dLSGOT/ AST 22.0 IU/LSGPT/ALT 21.0 IU/LALK PHOS 56.0 IU/LTOTAL PROTEIN 6.40 g/dLALBUMIN 4.10 g/dLTOTAL BILI 0.60 mg/dLCALCIUM 9.30 mg/dLAGE 68 GFR NonAA 72 GFR AA 87 eGFR 60 eGFR AA* 60 TRIGLYCERIDES 176.0 mg/dLCHOLESTEROL 187.0 mg/dLHDL 48.0 mg/ dLTOT CHOL/HDL 3.9 LDL (CALC) 104.0 mg/dLHGB A1C 7.40 %Est Avg Glucose 165.7 mg/ dLWBC 4.8 RBC 4.29 HGB 13.20 g/dLHCT 39.20 %MCV 91.0 fLMCH 30.80 pgMCHC 33.70 g/ dLRDW SD 46 RDW CV 14.0 %MPV 11.70 fLPLT 285 NRBC# 0.00 NRBC% 0.0 %NEUT 53.40 %% LYMP 36.70 %%MONO 6.20 %%EOS 2.70 %%BASO 1.0 %#NEUT 2.57 #LYMP 1.77 #MONO 0.30 # EOS 0.13 #BASO 0.05 MANUAL DIFF NOT IND 09/04/2014 8:38 AM WBC 5.6 RBC 4.24 HGB 12.90 g/dLHCT 39.40 %MCV 93.0 fLMCH 30.40 pgMCHC 32.70 g/dLRDW SD 46 RDW CV 13.50 %MPV 10.70 fLPLT 297 NRBC# 0.00 NRBC% 0.0 %NEUT 51.10 %%LYMP 38.60 %%MONO 5.40 %%EOS 3.80 %%BASO 1.10 %#NEUT 2.86 #LYMP 2.16 #MONO 0.30 #EOS 0.21 #BASO 0.06 MANUAL DIFF NOT IND HGB A1C 7.40 %Est Avg Glucose 165.7 mg/dLGLUCOSE 135.0 mg/dLSODIUM 137.0 mmol/ LPOTASSIUM 4.20 mmol/LCHLORIDE 101.0 mmol/LCO2 26.0 mmol/LBUN 22.0 mg/ dLCREATININE 0.90 mg/dLSGOT/AST 18.0 IU/LSGPT/ALT 19.0 IU/LALK PHOS 52.0 IU/ LTOTAL PROTEIN 6.40 g/dLALBUMIN 4.10 g/dLTOTAL BILI 0.10 mg/dLCALCIUM 9.40 mg/ dLAGE 68 GFR NonAA 62 GFR AA 75 eGFR 60 eGFR AA* 60 TRIGLYCERIDES 159.0 mg/ dLCHOLESTEROL 182.0 mg/dLHDL 36.0 mg/dLTOT CHOL/HDL 5.1 LDL (CALC) 114.0 mg/dL 04/23/2015 8:17 AM WBC 6.0 RBC 4.43 HGB 13.50 g/dLHCT 40.60 %MCV 92.0 fLMCH 30.50 pgMCHC 33.30 g/dLRDW SD 47 RDW CV 14.0 %MPV 10.40 fLPLT 315 NRBC# 0.00 NRBC% 0.0 %NEUT 58.10 %%LYMP 32.20 %%MONO 5.50 %%EOS 3.0 %%BASO 1.20 %#NEUT 3.51 #LYMP 1.94 #MONO 0.33 #EOS 0.18 #BASO 0.07 MANUAL DIFF NOT IND TRIGLYCERIDES 200.0 mg/dLCHOLESTEROL 191.0 mg/dLHDL 43.0 mg/dLTOT CHOL/HDL 4.4 LDL (CALC) 108.0 mg/dLGLUCOSE 141.0 mg/dLSODIUM 137.0 mmol/LPOTASSIUM 4.10 mmol/ LCHLORIDE 101.0 mmol/LCO2 24.0 mmol/LBUN 22.0 mg/dLCREATININE 0.80 mg/dLSGOT/ AST 18.0 IU/LSGPT/ALT 16.0 IU/LALK PHOS 59.0 IU/LTOTAL PROTEIN 6.20 g/dLALBUMIN 4.0 g/dLTOTAL BILI 0.50 mg/dLCALCIUM 9.30 mg/dLAGE 69 GFR NonAA 71 GFR AA 86 eGFR >60 mL/min/1.73 m2eGFR AA* >60 Hemoglobin A1c 7.0 %Estim. Avg Glu (eAG) 154 mg/dL 09/22/2015 9:15 AM GLUCOSE 130.0 mg/dLSODIUM 138.0 mmol/LPOTASSIUM 4.60 mmol/ LCHLORIDE 101.0 mmol/LCO2 26.0 mmol/LBUN 20.0 mg/dLCREATININE 0.80 mg/dLSGOT/ AST 16.0 IU/LSGPT/ALT 18.0 IU/LALK PHOS 59.0 IU/LTOTAL PROTEIN 6.10 g/dLALBUMIN 4.20 g/dLTOTAL BILI 0.40 mg/dLCALCIUM 9.10 mg/dLAGE 69 GFR NonAA 71 GFR AA 86 eGFR >60 mL/min/1.73meGFR AA* >60 WBC 5.7 RBC 4.66 HGB 14.10 g/dLHCT 43.30 % MCV 93.0 fLMCH 30.30 pgMCHC 32.60 g/dLRDW SD 47 RDW CV 13.80 %MPV 10.90 fLPLT 311 NRBC# 0.00 NRBC% 0.0 %NEUT 54.70 %%LYMP 35.30 %%MONO 5.60 %%EOS 3.70 %%BASO 0.70 %#NEUT 3.12 #LYMP 2.01 #MONO 0.32 #EOS 0.21 #BASO 0.04 MANUAL DIFF NOT IND TRIGLYCERIDES 197.0 mg/dLCHOLESTEROL 188.0 mg/dLHDL 41.0 mg/dLTOT CHOL/HDL 4.6 LDL (CALC) 108.0 mg/dLHemoglobin A1c 7.20 %Estim. Avg Glu (eAG) 160 12/03/2015 5:55 PM GLUCOSE 196.0 mg/dLSODIUM 137.0 mmol/LPOTASSIUM 3.70 mmol/ LCHLORIDE 99.0 mmol/LCO2 25.0 mmol/LBUN 24.0 mg/dLCREATININE 1.0 mg/dLSGOT/AST 17.0 IU/LSGPT/ALT 20.0 IU/LALK PHOS 65.0 IU/LTOTAL PROTEIN 6.60 g/dLALBUMIN 4.20 g/dLTOTAL BILI 0.20 mg/dLCALCIUM 9.80 mg/dLAGE 70 GFR NonAA 55 GFR AA 67 eGFR 55 eGFR AA* >60 WBC 7.7 RBC 4.55 HGB 13.80 g/dLHCT 42.50 %MCV 93.0 fLMCH 30.30 pgMCHC 32.50 g/dLRDW SD 47 RDW CV 13.80 %MPV 10.70 fLPLT 353 NRBC# 0.00 NRBC% 0.0 %NEUT 60.40 %%LYMP 32.30 %%MONO 4.70 %%EOS 1.70 %%BASO 0.90 %#NEUT 4.67 #LYMP 2.49 #MONO 0.36 #EOS 0.13 #BASO 0.07 MANUAL DIFF NOT IND 03/15/2016 2:08 PM WBC 6.6 RBC 4.42 HGB 13.30 g/dLHCT 40.60 %MCV 92.0 fLMCH 30.10 pgMCHC 32.80 g/dLRDW SD 46 RDW CV 13.50 %MPV 9.90 fLPLT 377 NRBC# 0.00 NRBC% 0.0 %NEUT 60.40 %%LYMP 30.0 %%MONO 6.10 %%EOS 2.10 %%BASO 1.10 %#NEUT 4.00 #LYMP 1.98 #MONO 0.40 #EOS 0.14 #BASO 0.07 MANUAL DIFF NOT IND GLUCOSE 183.0 mg/dLSODIUM 138.0 mmol/LPOTASSIUM 4.40 mmol/LCHLORIDE 100.0 mmol/LCO2 26.0 mmol/LBUN 23.0 mg/dLCREATININE 1.40 mg/dLSGOT/AST 17.0 IU/LSGPT/ALT 22.0 IU /LALK PHOS 74.0 IU/LTOTAL PROTEIN 6.30 g/dLALBUMIN 4.30 g/dLTOTAL BILI 0.20 mg/ dLCALCIUM 9.90 mg/dLAGE 70 GFR NonAA 37 GFR AA 45 eGFR 37 eGFR AA* 45 Hemoglobin A1c 7.10 %Estim. Avg Glu (eAG) 157 10/19/2016 8:52 AM WBC 5.6 RBC 4.47 HGB 13.20 g/dLHCT 41.30 %MCV 92.0 fLMCH 29.50 pgMCHC 32.0 g/dLRDW SD 47 RDW CV 13.70 %MPV 10.30 fLPLT 320 NRBC# 0.00 NRBC% 0.0 %NEUT 54.20 %%LYMP 35.10 %%MONO 6.0 %%EOS 3.20 %%BASO 1.10 %#NEUT 3.05 #LYMP 1.97 #MONO 0.34 #EOS 0.18 #BASO 0.06 MANUAL DIFF NOT IND HGB A1C 7.10 %Est Avg Glucose 157.1 mg/dLGLUCOSE 140.0 mg/dLSODIUM 139.0 mmol/ LPOTASSIUM 4.70 mmol/LCHLORIDE 102.0 mmol/LCO2 26.0 mmol/LBUN 19.0 mg/ dLCREATININE 0.90 mg/dLSGOT/AST 14.0 IU/LSGPT/ALT 17.0 IU/LALK PHOS 61.0 IU/ LTOTAL PROTEIN 6.30 g/dLALBUMIN 4.20 g/dLTOTAL BILI 0.30 mg/dLCALCIUM 9.70 mg/ dLAGE 70 GFR NonAA 62 GFR AA 75 eGFR >60 mL/min/1.73meGFR AA* >60 TRIGLYCERIDES 178.0 mg/dLCHOLESTEROL 179.0 mg/dLHDL 42.0 mg/dLTOT CHOL/HDL 4.3 LDL (CALC) 101.0 mg/dL History Of Immunizations Not available. History [...] 2015 2:30PM Hyperlipidemia Sep 18 2015 2:30PM Hypertension Oct 08 2015 10:10AM Hyperlipidemia, unspecified Oct 08 2015 10:10AM Diabetes Mellitus, Type II Oct 08 2015 10:10AM Right calf pain Dec 03 2015 5:21PM Knee pain, right Dec 23 2015 9:38AM Hypertension Mar 15 2016 1:31PM Hyperlipidemia, unspecified Mar 15 2016 1:31PM Diabetes Mellitus, Type II Mar 15 2016 1:31PM Yeast vaginitis Mar 15 2016 1:31PM Seborrheic keratoses May 06 2016 1:34PM Yeast vaginitis May 06 2016 1:34PM Hypertension Oct 14 2016 2:37PM Diabetes Mellitus, Type II Oct 14 2016 2:37PM Hyperlipidemia Oct 14 2016 2:37PM Hypertension Oct 21 2016 9:51AM Hyperlipidemia, unspecified Oct 21 2016 9:51AM Diabetes Mellitus, Type II Oct 21 2016 9:51AM Hypertension Dec 08 2016 11:32AM Hyperlipidemia, unspecified Dec 08 2016 11:32AM Diabetes Mellitus, Type II Dec 08 2016 11:32AM Hip fracture, left, closed, initial encounter Jan 13 2017 11:08AM Coronary Artery Disease Jul 21 2017 12:40PM Hypertension Jul 21 2017 12:40PM Diabetes Mellitus, Type II Jul 21 2017 12:40PM Hyperlipidemia Jul 21 2017 12:40PM Payers Insurance Name Company Name Plan Name Plan Number Policy Number Policy Group Number Start Date Medicare [facility] Medicare [facility] [id number] N/A [employer] [id number] Thursday, 2014 Medicare Part A Medicare - Lab/Xray [id number] [id number] Saturday, October 03, 2009 [id number] Tuesday, May 24, 2011 Medicare Part B Medicare [facility] [id number] Monday, October 03, 2011 [employer] [id number] Tuesday, October 18, 2011 Medicare Part A Medicare Part A [id number] N/A [facility] [id number] N/A [employer] Medicare Supplement [employer] [id number] Sunday, December 01, 2013 History of Encounters Visit Date Visit Type Provider 01/13/2017 Office visit Galdino Lim MD 01/04/2017 Hospital Eren Luz MD 01/01/2017 Hospital Flor Hay MD 12/08/2016 Office visit Galdino Lim MD 10/21/2016 Office visit Galdino Lim MD 05/06/2016 Office visit Galdino Lim MD 03/15/2016 Office visit Galdino Lim MD 12/23/2015 Office visit Galdino Lim MD 12/03/2015 Office visit Russell Watson APRN 10/08/2015 Office visit Galdino Lim MD 04/24/2015 Office visit Galdino Lim MD 12/23/2014 [...]
--- OUTSIDE RECORDS SUMMARY | 2017-10-10 13:47 | XMS REPORT ---
Author Author Galdino Lim [facility] Address [address] [place] [id number] Care Team Providers Care President Educational [employer] Name Role Phone Galdino Lim PCP Unavailable Galdino Lim PreferredProvider Unavailable Allergies and Adverse Reactions Name Reaction Notes NO KNOWN DRUG ALLERGIES Plan of Treatment Planned Activity Comments Planned Date Planned Time Plan/Goal MRI LOWER EXT ANY JOINT W/O CONTRAST 12/29/2015 12:00 AM CMP (comprehensive metabolic panel) 10/14/2016 12:00 AM Medications Active Name Start Date [...] MORNING AND 2 TABS IN THE EVENING Accu-Chek Compact Plus Test miscellaneous strip 10/01/2014 [...] MORNING AND 2 TABS IN THE EVENING Name Start Date Expiration Date SIG Comments [...] for 5 days Accu-Chek Softclix Lancets Miscellaneous Misc 05/30/2012 05/20/2014 [...] LDL (CALC) 145.0 mg/dL 07/10/2012 8:15 AM WBC 5.6 RBC 4.26 HGB 13.30 g/dLHCT 39.80 %MCV 93.0 fLMCH 31.20 pgMCHC 33.40 g/dLRDW SD 46 RDW CV 13.40 %MPV 10.60 fLPLT 335 NRBC# 0.00 NRBC% 0.0 %NEUT 44.60 %%LYMP 39.40 %%MONO 6.60 %%EOS 8.50 %%BASO 0.90 %#NEUT 2.51 #LYMP 2.22 #MONO 0.37 #EOS 0.48 #BASO 0.05 MANUAL DIFF NOT IND GLUCOSE 147.0 mg/dLSODIUM 138.0 mmol/LPOTASSIUM 4.30 mmol/LCHLORIDE 101.0 mmol/LCO2 26.0 mmol/LBUN 14.0 mg/dLCREATININE 0.90 mg/dLSGOT/AST 18.0 IU/LSGPT/ALT 25.0 IU /LALK PHOS 54.0 IU/LTOTAL PROTEIN 6.40 g/dLALBUMIN 4.20 g/dLTOTAL BILI 0.30 mg/ dLCALCIUM 9.90 mg/dLAGE 66 GFR NonAA 63 GFR AA 76 eGFR 60 eGFR AA* 60 TRIGLYCERIDES 289.0 mg/dLCHOLESTEROL 231.0 mg/dLHDL 45.0 mg/dLTOT CHOL/HDL 5.1 LDL (CALC) 128.0 mg/dLGLYCOHEMOGLOBIN A1C [...] mg/dLTOT CHOL/HDL 5.1 LDL (CALC) 114.0 mg/dL 12/20/2014 8:38 AM GLUCOSE 138.0 mg/dLSODIUM 139.0 mmol/LPOTASSIUM 4.40 mmol/ LCHLORIDE 102.0 mmol/LCO2 26.0 mmol/LBUN 22.0 mg/dLCREATININE 0.90 mg/dLSGOT/ AST 18.0 IU/LSGPT/ALT 18.0 IU/LALK PHOS 54.0 IU/LTOTAL PROTEIN 6.40 g/dLALBUMIN 4.20 g/dLTOTAL BILI 0.40 mg/dLCALCIUM 9.60 mg/dLAGE 69 GFR NonAA 62 GFR AA 75 eGFR >60 mL/min/1.73 m2eGFR AA* >60 WBC 5.6 RBC 4.46 HGB 13.30 g/dLHCT 41.40 % MCV 93.0 fLMCH 29.80 pgMCHC 32.10 g/dLRDW SD 47 RDW CV 13.80 %MPV 10.60 fLPLT 323 NRBC# 0.00 NRBC% 0.0 %NEUT 54.60 %%LYMP 37.20 %%MONO 4.10 %%EOS 3.20 %%BASO 0.90 %#NEUT 3.08 #LYMP 2.10 #MONO 0.23 #EOS 0.18 #BASO 0.05 MANUAL DIFF NOT IND HGB A1C 7.70 %Est Avg Glucose 174.3 mg/dLTRIGLYCERIDES 257.0 mg/dLCHOLESTEROL 192.0 mg/dLHDL 41.0 mg/dLTOT CHOL/HDL 4.7 LDL (CALC) 100.0 mg/dL 04/23/2015 8:17 AM WBC [...] Avg Glu (eAG) 160 12/03/2015 5:55 PM D-DIMER QUANT 0.29 GLUCOSE 196.0 mg/dLSODIUM 137.0 mmol/ LPOTASSIUM 3.70 mmol/LCHLORIDE 99.0 mmol/LCO2 25.0 mmol/LBUN 24.0 mg/ dLCREATININE 1.0 mg/dLSGOT/AST 17.0 IU/LSGPT/ALT 20.0 IU/LALK PHOS 65.0 IU/ LTOTAL PROTEIN 6.60 g/dLALBUMIN 4.20 g/dLTOTAL BILI 0.20 mg/dLCALCIUM 9.80 mg/ dLAGE 70 GFR NonAA 55 GFR AA 67 eGFR 55 eGFR AA* >60 WBC 7.7 RBC 4.55 HGB 13.80 g/dLHCT 42.50 %MCV 93.0 fLMCH 30.30 pgMCHC 32.50 g/dLRDW SD 47 RDW CV 13.80 % MPV 10.70 fLPLT 353 NRBC# 0.00 NRBC% 0.0 %NEUT 60.40 %%LYMP 32.30 %%MONO 4.70 %% EOS 1.70 %%BASO 0.90 %#NEUT 4.67 #LYMP 2.49 [...] closed, initial encounter Jan 13 2017 11:08AM Payers Insurance Name Company Name Plan Name Plan Number Policy Number Policy Group Number Start Date Medicare RHC Medicare RHC [id number] N/A [employer] [id number] Thursday, 2014 Medicare Part A Medicare - Lab/Xray [id number] N/A BCBS [facility] [id number] November [facility] [id number] Saturday, October 03, 2009 [id number] Tuesday, May 24, 2011 Medicare Part B Medicare [place] [id number] Monday, October 03, 2011 [employer] [id number] Tuesday, October 18, 2011 Medicare Part A Medicare Part A [id number] N/A [facility] [id number] N/A [facility] Medicare Supplement [facility] [employer] [id number] Sunday, December 01, 2013 History of Encounters Visit Date Visit Type Provider 01/13/2017 Office visit Galdino Lim MD 12/08/2016 Office visit Galdino Lim MD [...]
--- OUTSIDE RECORDS SUMMARY | 2017-10-10 13:47 | XMS REPORT | CCD ---
Author Author LAYNE CANTOR Unknown Address [address] [place] [address] Care Team Providers Care Building Official Name Role Phone ANDRIY SUN MD Attphys L., CARINA NASST A., JESSENIA WOFL NASST F., TALIA NASST K., MAUREEN Mendez NASST A., XIOMARA NASST R., TROY NASST R., JEREMIE NASST M., KAM NASST C., KAM A NASST Allergies Allergy Code Allergy Type Reaction Status No Known Allergies 0 Drug allergy Active Active Medications Medication Code Dose Units Frequency Route Modification Start Date/Time HYDROcodone bitartrate-acetaminophen 5MG-325MG Oral Tablet 726020 1 TABLET NEEDED EVERY 4 HR BY MOUTH 17:37 Prescription Detail 1 TABLET BY MOUTH NEEDED EVERY 4 HR Januvia 100MG Oral Tablet 900321 100 MILLIGRAMS DAILY BY MOUTH 01/10/2017 17:37 Prescription Detail 100 MILLIGRAMS BY MOUTH DAILY Polyethylene Glycol 3350 17GM/1Dose Oral Powder for Solution 150258 17 GRAM TWO TIMES A DAY BY MOUTH 2016 17:37 Prescription Detail 17 GRAM BY MOUTH TWO TIMES A DAY Docusate Sodium 100MG Oral Capsule, Liquid Filled 3284337 100 MILLIGRAMS TWO TIMES A DAY BY MOUTH 2016 17:36 Prescription Detail 100 MILLIGRAMS BY MOUTH TWO TIMES A DAY Fenofibrate 145MG Oral Tablet 115739 145 MILLIGRAMS BEDTIME BY MOUTH 01/10/2017 17:36 Prescription Detail 145 MILLIGRAMS BY MOUTH BEDTIME Lidoderm 5% Topical application Patch, Extended Release [id number] 1 PATCH DAILY TOPICAL APPLICATION 2016 17:36 Prescription Detail 1 PATCH TOPICAL APPLICATION DAILY Lisinopril 20MG Oral Tablet 430233 20 MILLIGRAMS DAILY BY MOUTH 01/10/2017 17:36 Prescription Detail 20 MILLIGRAMS BY MOUTH DAILY metFORMIN HCl 500MG Oral Tablet 457593 8643 MILLIGRAMS WITH SUPPER BY MOUTH 01/10/2017 17:36 Prescription Detail 1000 MILLIGRAMS BY MOUTH WITH SUPPER Zetia 10MG Oral Tablet 453113 10 MILLIGRAMS BEDTIME BY MOUTH 01/10/2017 17:36 Prescription Detail 10 MILLIGRAMS BY MOUTH BEDTIME Aspirin 325MG Oral Tablet, Enteric Coated 071460 325 MILLIGRAMS TWO TIMES A DAY BY MOUTH 01/10/2017 17: 35 Prescription Detail 325 MILLIGRAMS BY MOUTH TWO TIMES A DAY Atorvastatin Calcium 10MG Oral Tablet 643907 10 MILLIGRAMS DAILY BY MOUTH 01/10/2017 17:35 Prescription Detail 10 MILLIGRAMS BY MOUTH DAILY Citalopram Hydrobromide 20MG Oral Tablet 292381 40 MILLIGRAMS DAILY BY MOUTH 01/10/2017 17:35 Prescription Detail 40 MILLIGRAMS BY MOUTH DAILY Cyclobenzaprine HCl 10MG Oral Tablet 611152 10 MILLIGRAMS NEEDED EVERY 6 HR BY MOUTH 01/10/2017 17:35 Prescription Detail 10 MILLIGRAMS BY MOUTH NEEDED EVERY 6 HR Problems Problem Code Start Date Resolved Date Status Hip fracture 161921027 12/31/2016 Active Post op pain 830631867 12/31/2016 Active Procedures Procedure Code Procedure Type Date OT ADL TRAINING/POSITIONING EA 15MIN 281327913 SNOMED CT 01/10/2017 OT THERAPEUTIC EXERCISES [address] 2016 PT THERAPEUTIC ACT. ONE ON ONE EA [address] 01/10/2017 PT THERAPEUTIC EXERCISES [address] 2016 PT GAIT TRAINING/STAIRS EA [address] 01/10 PT GROUP THERAPY 817204250 SNOMED CT 01/08/2017 PT GAIT TRAINING/STAIRS EA [address] 01/08 HIP [address] 01/10/2017 BEDSIDE GLUCOSE 85731269 SNOMED CT 01/11/2017 BEDSIDE GLUCOSE 94937627 SNOMED CT 01/10/2017 BEDSIDE GLUCOSE 95574511 SNOMED CT 01/10/2017 BEDSIDE GLUCOSE 10259543 SNOMED CT 01/10/2017 BEDSIDE GLUCOSE 86484813 SNOMED CT 01/10/2017 BEDSIDE GLUCOSE 27165645 SNOMED CT 01/09/2017 BEDSIDE GLUCOSE 33008977 SNOMED CT 01/09/2017 BEDSIDE GLUCOSE 64132624 SNOMED CT 01/09/2017 BEDSIDE GLUCOSE 11354426 SNOMED CT 01/09/2017 BEDSIDE GLUCOSE 31350056 SNOMED CT 01/08/2017 BEDSIDE GLUCOSE 24326359 SNOMED CT 01/08/2017 BEDSIDE GLUCOSE 99287478 SNOMED CT 01/08/2017 BEDSIDE GLUCOSE 01413157 SNOMED CT 01/08/2017 BEDSIDE GLUCOSE 53724788 SNOMED CT 01/07/2017 BEDSIDE GLUCOSE 58796110 SNOMED CT 01/07/2017 BEDSIDE GLUCOSE 24677591 SNOMED CT 01/07/2017 BEDSIDE GLUCOSE 21612024 SNOMED CT 01/07/2017 BEDSIDE GLUCOSE 28848610 SNOMED CT 01/06/2017 BEDSIDE GLUCOSE 05956460 SNOMED CT 01/06/2017 BEDSIDE GLUCOSE 74407218 SNOMED CT 01/06/2017 BEDSIDE GLUCOSE 28169668 SNOMED CT 01/06/2017 BEDSIDE GLUCOSE 43645085 SNOMED CT 01/05/2017 BEDSIDE GLUCOSE 08155099 SNOMED CT 01/05/2017 BEDSIDE GLUCOSE 74131130 SNOMED CT 01/05/2017 BEDSIDE GLUCOSE 56104978 SNOMED CT 01/05/2017 BEDSIDE GLUCOSE 02824577 SNOMED CT 01/04/2017 BEDSIDE GLUCOSE 04759586 SNOMED CT 01/04/[address] 01/07/2017 BASIC METABOLIC PANEL 597356870 SNOMED CT 01/07/2017 BEDSIDE GLUCOSE 84861488 SNOMED CT 01/04/2017 BEDSIDE GLUCOSE 05950467 SNOMED CT 01/04/2017 BEDSIDE GLUCOSE 09413182 SNOMED CT 01/03/2017 BEDSIDE GLUCOSE 10335988 SNOMED CT 01/03/2017 BASIC METABOLIC PANEL 502229586 SNOMED CT 01/04/2017 CBC W/ AUTO DIFF (RFLX MAN DIFF IF IND) 0576112 SNOMED CT 01/04/2017 UA W/MICRO C&S IF IND 792756872 SNOMED CT 01/03/2017 [address]OGLOBIN A1C 49[address]8799 SNOM[address] CT 01/04/2017 PT THERAPEUTIC EXERCISES [address] 2016 PT GAIT TRAINING/STAIRS EA [address] 01/07 OT THERAPEUTIC EXERCISES [address] 2016 OT ADL TRAINING/POSITIONING EA 15MIN 681805367 SNOMED CT 01/07/2017 PT THERAPEUTIC ACT. ONE ON ONE EA [address] 01/07/2017 PT THERAPEUTIC EXERCISES [address] 2016 OT ADL TRAINING/POSITIONING EA 15MIN 128566556 SNOMED CT 01/06/2017 OT THERAPEUTIC EXERCISES [address] 2016 PT THERAPEUTIC ACT. ONE ON ONE EA [address] 01/06/2017 PT GAIT TRAINING/STAIRS EA [address] 01/06 PT THERAPEUTIC EXERCISES [address] 2016 OT ADL TRAINING/POSITIONING EA 15MIN 065587425 SNOMED CT 01/05/2017 OT THERAPEUTIC EXERCISES [address] 2016 PT THERAPEUTIC ACT. ONE ON ONE EA [address] 01/05/2017 PT THERAPEUTIC EXERCISES [address] 2016 PT GAIT TRAINING/STAIRS EA [address] 01/05 PT THERAPEUTIC ACT. ONE ON ONE EA [address] 01/03/2017 PT THERAPEUTIC EXERCISES [address] 2016 PT THERAPEUTIC EXERCISES [address] 2016 PT GAIT TRAINING/STAIRS EA [address] 01/03 OT THERAPEUTIC EXERCISES [address] 2016 OT ADL TRAINING/POSITIONING EA 15MIN 567078729 SNOMED CT 01/03/2017 OT EVAL; MOD 399138779 SNOMED CT 01/03/2017 OT THERAPEUTIC ACT. ONE ON ONE EA [address] 01/04/2017 OT ADL TRAINING/POSITIONING EA 15MIN 327122981 SNOMED CT 01/04/2017 OT THERAPEUTIC EXERCISES [address] 2016 PT EVALUATION; LOW 917048091 SNOMED CT 01/03/2017 PT THERAPEUTIC ACT. ONE ON ONE EA [address] 01/04/2017 PT THERAPEUTIC EXERCISES 15 MIN 25157632 [facility] CT 2016 PT GAIT TRAINING/STAIRS EA [address] 01/04 PT EVALUATION 610585027 [facility] CT 01/03/2017 OT EVALUATION 784952006 [facility] CT 01/03/2017 INCENTIVE SPIROMETRY EA 15 MINUTES 775063883 [facility] CT 12/2016 ^CBC W/AUTO DIFF 5589430 [facility] CT 01/04/2017 Results BASIC METABOLIC PANEL - Collect Date/Time: 01/07/2017 06:45 Test Name Code Test Result Test Units Test Ref Range GLUCOSE 2345-7 132 MG/DL L=70 H=100 SODIUM 2951-2 138 MEQ/L L=135 H=148 POTASSIUM 2823-3 4.2 MEQ/L L=3.5 H=5.3 CHLORIDE 2075-0 103 MEQ/L L=96 H=110 CO2 2028-9 24 MEQ/L L=22 H=29 BUN 3094-0 22 MG/DL L=8 H=22 CREATININE 2160-0 0.8 MG/DL L=0.6 H=1.6 CALCIUM 68770-9 9.0 MG/DL L=8.2 H=10.6 AGE [birth year][address]-2 71 yrs GFR NonAA 77153-6 71 GFR AA 26665-7 86 eGFR 49543-1 >60 N/A eGFR AA* 96627-8 >60 N/A BASIC METABOLIC PANEL - Collect Date/Time: 01/04/2017 06:10 Test Name Code Test Result Test Units Test Ref Range GLUCOSE 2345-7 132 MG/DL L=70 H=100 SODIUM 2951-2 139 MEQ/L L=135 H=148 POTASSIUM 2823-3 4.2 MEQ/L L=3.5 H=5.3 CHLORIDE 2075-0 103 MEQ/L L=96 H=110 CO2 2028-9 26 MEQ/L L=22 H=29 BUN 3094-0 19 MG/DL L=8 H=22 CREATININE 2160-0 0.8 MG/DL L=0.6 H=1.6 CALCIUM 39130-1 9.3 MG/DL L=8.2 H=10.6 AGE [address]-0 71 yrs GFR NonAA 43865-9 71 [place] [address]-9 86 eGFR 58860-0 >60 N/A eGFR AA* 71263-2 >60 N/A BEDSIDE GLUCOSE - Collect Date/Time: 01/11/2017 06:19 Test Name Code Test Result Test Units Test Ref Range GLUCOSE POCT 149 MG/DL L=70 H=100 BEDSIDE GLUCOSE - Collect Date/Time: 01/10/2017 20:36 Test Name Code Test Result Test Units Test Ref Range GLUCOSE POCT 133 MG/DL L=70 H=100 BEDSIDE GLUCOSE - Collect Date/Time: 01/10/2017 16:33 Test Name Code Test Result Test Units Test Ref Range GLUCOSE POCT 162 MG/DL L=70 H=100 BEDSIDE GLUCOSE - Collect Date/Time: 01/10/2017 11:34 Test Name Code Test Result Test Units Test Ref Range GLUCOSE POCT 114 MG/DL L=70 H=100 BEDSIDE GLUCOSE - Collect Date/Time: 01/10/2017 05:15 Test Name Code Test Result Test Units Test Ref Range GLUCOSE POCT 127 MG/DL L=70 H=100 BEDSIDE GLUCOSE - Collect Date/Time: 01/09/2017 20:37 Test Name Code Test Result Test Units Test Ref Range GLUCOSE POCT 176 MG/DL L=70 H=100 BEDSIDE GLUCOSE - Collect Date/Time: 01/09/2017 16:40 Test Name Code Test Result Test Units Test Ref Range GLUCOSE POCT 167 MG/DL L=70 H=100 BEDSIDE GLUCOSE - Collect Date/Time: 01/09/2017 11:46 Test Name Code Test Result Test Units Test Ref Range GLUCOSE POCT 90 MG/DL L=70 H=100 BEDSIDE GLUCOSE - Collect Date/Time: 01/08/2017 20:36 Test Name Code Test Result Test Units Test Ref Range GLUCOSE POCT 157 MG/DL L=70 H=100 BEDSIDE GLUCOSE - Collect Date/Time: 01/08/2017 16:40 Test Name Code Test Result Test Units Test Ref Range GLUCOSE POCT 146 MG/DL L=70 H=100 BEDSIDE GLUCOSE - Collect Date/Time: 01/08/2017 11:36 Test Name Code Test Result Test Units Test Ref Range GLUCOSE POCT 121 MG/DL L=70 H=100 BEDSIDE GLUCOSE - Collect Date/Time: 01/08/2017 05:44 Test Name Code Test Result Test Units Test Ref Range GLUCOSE POCT 132 MG/DL L=70 H=100 BEDSIDE GLUCOSE - Collect Date/Time: 01/07/2017 20:45 Test Name Code Test Result Test Units Test Ref Range GLUCOSE POCT 158 MG/DL L=70 H=100 BEDSIDE GLUCOSE - Collect Date/Time: 01/07/2017 17:07 Test Name Code Test Result Test Units Test Ref Range GLUCOSE POCT 120 MG/DL L=70 H=100 BEDSIDE GLUCOSE - Collect Date/Time: 01/07/2017 12:02 Test Name Code Test Result Test Units Test Ref Range GLUCOSE POCT 89 MG/DL L=70 H=100 BEDSIDE GLUCOSE - Collect Date/Time: 01/07/2017 05:29 Test Name Code Test Result Test Units Test Ref Range GLUCOSE POCT 119 MG/DL L=70 H=100 BEDSIDE GLUCOSE - Collect Date/Time: 01/06/2017 20:45 Test Name Code Test Result Test Units Test Ref Range GLUCOSE POCT 143 MG/DL L=70 H=100 BEDSIDE GLUCOSE - Collect Date/Time: 01/06/2017 16:33 Test Name Code Test Result Test Units Test Ref Range GLUCOSE POCT 151 MG/DL L=70 H=100 BEDSIDE GLUCOSE - Collect Date/Time: 01/06/2017 11:37 Test Name Code Test Result Test Units Test Ref Range GLUCOSE POCT 81 MG/DL L=70 H=100 BEDSIDE GLUCOSE - Collect Date/Time: 01/06/2017 05:42 Test Name Code Test Result Test Units Test Ref Range GLUCOSE POCT 136 MG/DL L=70 H=100 BEDSIDE GLUCOSE - Collect Date/Time: 01/05/2017 20:45 Test Name Code Test Result Test Units Test Ref Range GLUCOSE POCT 157 MG/DL L=70 H=100 BEDSIDE GLUCOSE - Collect Date/Time: 01/05/2017 16:41 Test Name Code Test Result Test Units Test Ref Range GLUCOSE POCT 117 MG/DL L=70 H=100 BEDSIDE GLUCOSE - Collect Date/Time: 01/05/2017 11:54 Test Name Code Test Result Test Units Test Ref Range GLUCOSE POCT 97 MG/DL L=70 H=100 BEDSIDE GLUCOSE - Collect Date/Time: 01/05/2017 05:49 Test Name Code Test Result Test Units Test Ref Range GLUCOSE POCT 131 MG/DL L=70 H=100 BEDSIDE GLUCOSE - Collect Date/Time: 01/04/2017 20:53 Test Name Code Test Result Test Units Test Ref Range GLUCOSE POCT 146 MG/DL L=70 H=100 BEDSIDE GLUCOSE - Collect Date/Time: 01/04/2017 17:21 Test Name Code Test Result Test Units Test Ref Range GLUCOSE POCT 161 MG/DL L=70 H=100 BEDSIDE GLUCOSE - Collect Date/Time: 01/04/2017 11:50 Test Name Code Test Result Test Units Test Ref Range GLUCOSE POCT 111 MG/DL L=70 H=100 BEDSIDE GLUCOSE - Collect Date/Time: 01/04/2017 05:46 Test Name Code Test Result Test Units Test Ref Range GLUCOSE POCT 126 MG/DL L=70 H=100 BEDSIDE GLUCOSE - Collect Date/Time: 01/03/2017 20:43 Test Name Code Test Result Test Units Test Ref Range GLUCOSE POCT 169 MG/DL L=70 H=100 BEDSIDE GLUCOSE - Collect Date/Time: 01/03/2017 16:35 Test Name Code Test Result Test Units Test Ref Range GLUCOSE POCT 153 MG/DL L=70 H=100 CBC W/ AUTO DIFF (RFLX MAN DIFF IF IND) - Collect Date/Time: 01/04/2017 06:10 Test Name Code Test Result Test Units Test Ref Range WBC 02321-8 6.0 TH/CMM L=4.5 H=10.8 RBC 789-8 3.64 ML/CMM L=4.20 H=5.40 HGB 718-7 11.1 G/DL L=12.0 H=16.0 HCT 4544-3 33.9 % L=37.0 H=47.0 MCV 09399-6 93 FL L=81 H=99 MCH 83917-3 30.5 PG L=27.0 H=33.0 MCHC 97350-4 32.7 G/DL L=31.0 H=36[place]0 [place] [address]-5 45 FL L=36 H=50 [place] [address]-1 13.4 % L=0.0 H=14.8 MPV 31106-0 10.3 FL L=9.3 H=12.5 PLT 777-3 291 TH/CMM L=130 H=440 NRBC# 81416-1 0.00 TH/CMM L=0.00 H=0.00 NRBC% 05891-3 0.0 /100WBC L=0.0 H=2.0 %NEUT 41843-4 54.5 % %LYMP 94238-1 32.8 % %MONO 32075-9 7.3 % %EOS 47011-6 4.3 % %BASO 00918-7 0.8 % #NEUT 84782-2 3.26 TH/CMM L=2.10 H=8.20 #LYMP 34386-4 1.97 TH/CMM L=0.90 H=5.20 #MONO 72657-6 0.44 TH/CMM L=0.16 H=1.00 #EOS 17852-2 0.26 TH/CMM L=0.00 H=0.80 #BASO 00974-4 0.05 TH/CMM L=0.00 H=0.20 MANUAL DIFF 41040-3 NOT IND N/A HEMOGRAM - Collect Date/Time: 01/07/2017 06:45 Test Name Code Test Result Test Units Test Ref Range WBC 11070-6 5.3 TH/CMM L=4.5 H=10.8 RBC 789-8 3.65 ML/CMM L=4.20 H=5.40 HGB 718-7 10.9 G/DL L=12.0 H=16.0 HCT 4544-3 34.3 % L=37.0 H=47.0 MCV 83666-0 94 FL L=81 H=99 MCH 51395-2 29.9 PG L=27.0 H=33.0 MCHC 17761-3 31.8 G/DL L=31.0 H=36.0 [place] [address]-8 47 FL L=36 H=50 [place] [address]-6 13.5 % L=0.0 H=14.8 MPV 52125-9 10.1 FL L=9.3 H=12.5 PLT 777-3 331 TH/CMM L=130 H=440 NRBC# 95633-8 0.00 TH/CMM L=0.00 H=0.00 NRBC% 63857-5 0.0 /100WBC L=0.0 H=2.0 UA W/MICRO C&S IF IND - Collect Date/Time: 01/03/2017 18:00 Test Name Code Test Result Test Units Test Ref Range COLOR 02119-3 YELLOW N/A NL: YELLOW APPEARANCE 91650-9 CLEAR N/A NL: CLEAR SPEC GRAV 70690-3 1.025 N/A NL: 1.002 - 1.022 pH 70767-5 5.5 N/A NL: 5 - 9 PROTEIN 87209-5 NEGATIVE N/A NL: NEGATIVE mg/dl GLUCOSE 15553-7 NEGATIVE N/A NL: NEGATIVE mg/dl KETONE 01266-6 NEGATIVE N/A NL: NEGATIVE mg/dl BILIRUBIN 48201-5 NEGATIVE N/A NL: NEGATIVE BLOOD 18647-2 NEGATIVE N/A NL: NEGATIVE NITRITE 68317-8 NEGATIVE N/A NL: NEGATIVE LEUK SCREEN 58356-4 TRACE N/A NL: NEGATIVE WBC/HPF 47169-2 0-5 N/A NL: NEGATIVE RBC/HPF 57209-1 RARE N/A NL: NEGATIVE CASTS/LPF 33575-0 NEGATIVE N/A NL: NEGATIVE CRYSTALS 89317-1 NEGATIVE N/A NL: NEGATIVE MUCOUS THRDS 57209-4 NEGATIVE N/A NL: NEGATIVE BACTERIA 98284-2 FEW N/A NL: NEGATIVE EPITH CELLS 47894-7 FEW SQUAMOUS N/A NL: NEGATIVE TRICHOMONAS 48355-3 NEGATIVE N/A NL: NEGATIVE YEAST 57638-0 NEGATIVE N/A NL: NEGATIVE CULT SET UP? 47504-8 NO N/A HEMOGLOBIN A1C - Collect Date/Time: 01/04/2017 06:10 Test Name Code Test Result Test Units Test Ref Range HGB A1C 81034-4 7.0 % L=4.0 H=6.4 Est Avg Glucose 83497-8 154.2 mg/dL Function Status Unknown or Not Available. History of Immunizations Immunization Code Date influenza, split (incl. purified surface antigen) 15 07/07/2004 influenza, split (incl. purified surface antigen) 15 09/20/2005 Td (adult) preservative free 113 10/14/2009 Plan of Treatment Unknown or Not Available. Social History Smoking Status Code Start Date End Date Never smoker [id number] Vital Signs Vital Sign Value Unit Date/Time Recent/Initial? BMI (Body Mass Index) 27.28 kg/m2 01/03/2017 11:20 Initial VS Weight Measured 187.4 [lb_av] 01/03/2017 11:20 Initial VS Height 69.5 [in_i] 01/03/2017 11:20 Initial VS BSA (Body Surface Area) 2.04 m2 01/03/2017 11:20 Initial VS BP Systolic 140 mm[Hg] 01/03/2017 11:20 Initial VS BP Diastolic 75 mm[Hg] 01/03/2017 11:20 Initial VS Respiratory Rate 18 /min 01/03/2017 11:20 Initial VS Heart Rate 82 /min 01/03/2017 11:20 Initial VS O2 % BldC Oximetry 95 % 01/03/2017 11:20 Initial VS Body Temperature 99.8 [degF] 01/03/2017 11:20 Initial VS BMI (Body Mass Index) 26.98 kg/m2 01/10/2017 02:56 Most Recent VS Weight Measured 182.7 [lb_av] 01/10/2017 02:56 Most Recent VS Height 69 [in_i] 01/10/2017 02:56 Most Recent VS BSA (Body Surface Area) 2.01 m2 01/10/2017 02:56 Most Recent VS BP Systolic 149 mm[Hg] 01/11/2017 05:13 Most Recent VS BP Diastolic 77 mm[Hg] 01/11/2017 05:13 Most Recent VS Respiratory Rate 18 /min 01/11/2017 05:13 Most Recent VS Heart Rate 75 /min 01/11/2017 05:13 Most Recent VS O2 % BldC Oximetry 100 % 01/11/2017 05:13 Most Recent VS Body Temperature 97.3 [degF] 01/11/2017 05:13 Most Recent VS Function Status Unknown or Not Available. Goals Unknown or Not Available. ASSESSMENTS Unknown or Not Available. Health Concerns Section Unknown or Not Available.
--- OUTSIDE RECORDS SUMMARY | 2017-10-10 13:49 | XMS REPORT ---
Author Author Galdino Lim [facility] Address [address] [place], [place] [id number] Care Team Providers Care Narrow Fabric Calenderer Name Role Phone Galdino Lim PCP Unavailable [...] take 1 capsule by oral route daily Onglyza 5 mg oral tablet take [...] MORNING AND 2 TABS IN THE EVENING Lexapro 20 mg oral tablet 05/01/2015 take [...] THE EVENING lisinopril-hydrochlorothiazide 20-25 mg oral tablet 01/05/2016 TAKE 1 TABLET ONCE A DAY IN THE MORNING escitalopram oxalate 20 mg oral tablet 05/10/2016 TAKE 1 TABLET BY MOUTH ONCE A DAY Hylafem 05/10/2016 as directed metformin 500 mg oral tablet 07/05/2016 TAKE [...] oral route once daily for 30 days Januvia 100 mg oral tablet 12/08/2016 12/03/2017 [...] by oral route once for 2 days Discontinued Name Start Date Discontinued Date [...] oral route once daily for 90 days sulfamethoxazole-trimethoprim 800-160 mg oral tablet 03/02/2016 03/15/2016 TAKE 1 TABLET BY MOUTH EVERY 12 HOURS FOR 7 DAYS Problem List Description Status Onset Diabetes Mellitus, Type II Active Heart disease Active Hypertension Active Hyperlipidemia Active Vital Signs Date Time BP-Sys(mm[Hg] BP-Rebecca(mm[Hg]) HR(bpm) RR(rpm) Temp WT HT HC BMI BSA BMI Percentile O2 Sat(%) 12/08/2016 11:27:00 AM 118 mmHg 70 mmHg 78 bpm 16 rpm 98.1 F 188 lbs 69 in 27.76 kg/m2 2.04 m2 97 % 10/21/2016 9:47:00 AM 128 mmHg 66 mmHg 88 bpm 18 rpm 98.2 F 183 lbs 69 in 27.0241 kg/m 2.0102 m 95 % 05/06/2016 1:31:00 PM 130 mmHg 62 mmHg 94 bpm 18 rpm 98.1 F 186.25 lbs 69 in 27.50 kg/m2 2.03 m2 95 % 03/15/2016 1:25:00 PM 110 mmHg 58 mmHg 93 bpm 16 rpm 98.5 F 182 lbs 69 in 26.8764 kg/m 2.0047 m 96 % 12/23/2015 9:33:00 AM 122 mmHg 70 mmHg 87 bpm 16 rpm 9.3 F 186 lbs 69 in 27.47 kg/m2 2.03 m2 98 % 12/03/2015 5:19:00 PM 132 mmHg 64 mmHg 96 bpm 18 rpm 98.5 F 184.5 lbs 69.5 in 26.855 kg/m 2.0258 m 95 % 10/08/2015 10:08:00 AM 138 mmHg 70 mmHg 84 bpm 18 rpm 98 F 183 lbs 69.5 in 26.64 kg/m2 2.02 m2 97 % 04/24/2015 3:34:00 PM 138 mmHg 70 mmHg 87 bpm 16 rpm 99.1 F 180 lbs 69.5 in 26.2 kg/m 2.0009 m 96 % 12/23/2014 2:44:00 PM 118 mmHg 62 mmHg 88 bpm 18 rpm 97.1 F 182 lbs 69.5 in 26.49 kg/m2 2.01 m2 10/09/2014 9:40:00 AM 152 mmHg 74 mmHg 80 bpm 18 rpm 98.2 F 186.375 lbs 69.5 in 27.1279 kg/m 2.036 m 97 % 09/09/2014 11:09:00 AM 130 mmHg 64 mmHg 64 bpm 16 rpm 98.8 F 188 lbs 69.5 in 27.36 kg/m2 2.04 m2 03/04/2014 9:11:00 AM 134 mmHg 72 mmHg 78 bpm 18 rpm 98.1 F 187 lbs 69.5 in 27.2189 kg/m 2.0394 m 11/14/2013 9:45:00 AM 126 mmHg 72 mmHg 80 bpm 18 rpm 98.2 F 184 lbs 69.5 in 26.78 kg/m2 2.02 m2 10/17/2013 8:49:00 AM 134 mmHg 72 mmHg 88 bpm 18 rpm 99.1 F 183 lbs 69.5 in 26.6367 kg/m 2.0175 m 09/12/2013 9:54:00 AM 148 mmHg 74 mmHg 94 bpm 20 rpm 97.4 F 181 lbs 69.5 in 26.35 kg/m2 2.01 m2 06/06/2013 10:13:00 AM 140 mmHg 82 mmHg 78 bpm 18 rpm 98.4 F 182 lbs 69.5 in 26.4911 kg/m 2.012 m 05/18/2013 9:26:00 AM 138 mmHg 82 mmHg 80 bpm 18 rpm 98.2 F 187 lbs 69.5 in 27.22 kg/m2 2.04 m2 03/16/2013 11:24:00 AM 136 mmHg 78 mmHg 80 bpm 18 rpm 98.2 F 186 lbs 69.5 in 27.0733 kg/m 2.034 m 11/15/2012 10:07:00 AM 138 mmHg 80 mmHg 82 bpm 18 rpm 98.5 F 189 lbs 69.5 in 27.51 kg/m2 2.05 m2 07/12/2012 9:45:00 AM 138 mmHg 80 mmHg 78 bpm 18 rpm 97.8 F 190 lbs 69.5 in 27.6555 kg/m 2.0557 m 03/01/2012 10:46:00 AM 128 mmHg 72 mmHg 03/01/2012 10:19:00 AM 144 mmHg 68 mmHg 82 bpm 20 rpm 98.8 F 195 lbs 69.5 in 28.3833 kg/m 2.08 m2 01/31/2012 10:24:00 AM 142 mmHg 88 mmHg 01/31/2012 9:57:00 AM 154 mmHg 78 mmHg 92 bpm 20 rpm 97.6 F 194 lbs 69.5 in 28.2378 kg/m 2.08 m2 2011 10:04:00 AM 160 mmHg 78 mmHg 82 bpm 20 rpm 99.3 F 197 lbs 69.5 in 28.67 kg/m2 2.0933 m 10/18/2011 9:15:00 AM 154 mmHg 80 mmHg 82 bpm 18 rpm 99 F 196 lbs 69.5 in 28.5289 kg/m 2.09 m2 07/26/2011 2:58:00 PM 130 mmHg 72 mmHg 72 bpm 20 rpm 98.5 F 198 lbs 69.5 in 28.82 kg/m2 2.0986 m 05/24/2011 9:36:00 AM 136 mmHg [...] Mellitus, Type II Dec 08 2016 11:32AM Payers Insurance Name Company Name Plan Name Plan Number Policy Number Policy Group Number Start Date Medicare [facility] Medicare [facility] [id number] N/A Old Surety Life Old [employer] Life [id number] Thursday, 2014 Medicare Part A Medicare - Lab/Xray [id number] N/A [id number] [id number] Saturday, October 03, 2009 [facility] [id number] Tuesday, May 24, 2011 Medicare Part B Medicare [facility] [id number] Monday, October 03, 2011 [employer] [id number] Tuesday, October 18, 2011 Medicare Part A Medicare Part A [id number] N/A [facility] [id number] N/A Cigna Medicare Supplement [employer] [id number] Sunday, December 01, 2013 History of Encounters Visit Date Visit Type Provider 12/08/2016 Office visit Galdino Lim MD 10/21/2016 [...]
--- OUTSIDE RECORDS SUMMARY | 2017-10-10 13:51 | XMS REPORT ---
Author Author Galdino Lim [facility] Address [address] [place], [place] [id number] Care Team Providers Care Smelter Charger Name Role Phone Galdino Lim PCP Unavailable Galdino Lim PreferredProvider Unavailable Allergies and Adverse Reactions Name Reaction Notes NO KNOWN DRUG ALLERGIES Plan of Treatment Planned Activity Comments Planned Date Planned Time Plan/Goal D-dimer 12/03/2015 12:00 AM MRI LOWER EXT ANY JOINT W/O CONTRAST 12/29/2015 12:00 AM CBC with Auto 10/14/2016 12:00 AM CMP (comprehensive metabolic panel) 10/14/2016 12:00 AM Lipid profile 10/14/2016 12:00 AM Hemoglobin A1C 10/14/2016 12:00 AM Medications Active Name Start [...] MORNING AND 2 TABS IN THE EVENING fenofibrate nanocrystallized 145 mg oral tablet 09/09/2015 TAKE 1 TABLET BY MOUTH ONCE A DAY cyclobenzaprine 10 mg oral tablet 10/08/2015 TAKE [...] TABLET BY MOUTH EVERY 8 HOURS NEEDED Name Start Date Expiration Date SIG Comments [...] HC BMI BSA BMI Percentile O2 Sat(%) 05/06/2016 1:31:00 PM 130 mmHg 62 mmHg [...] F 196 lbs 69.5 in 28.5289 kg/m 2.0879 m 07/26/2011 2:58:00 PM 130 mmHg 72 mmHg 72 bpm 20 rpm 98.5 F 198 lbs 69.5 in 28.82 kg/m2 2.10 m2 05/24/2011 9:36:00 AM 136 mmHg 82 mmHg [...] COMPREHEN METABOLIC PANEL Reviewed 12/03/2015 12:00 AM X-RAY EXAM OF LOWER LEG Reviewed 03/15/2016 12:00 AM COMPLETE CBC W/AUTO DIFF WBC Returned 03/15/2016 12:00 AM COMPREHEN METABOLIC PANEL Returned 03/15/2016 12:00 AM GLYCOSYLATED HEMOGLOBIN TEST Returned 10/18/2011 12:00 AM COMPLETE CBC W/AUTO [...] AM MAMMOGRAM SCREENING Reviewed 10/30/2012 12:00 AM COMPLETE CBC W/AUTO [...] A1c 7.10 %Estim. Avg Glu (eAG) 157 History Of Immunizations Not available. History of [...] 2016 2:37PM Hyperlipidemia Oct 14 2016 2:37PM Payers Insurance Name Company Name Plan Name Plan Number Policy Number Policy Group Number Start Date Medicare Part A Medicare [facility] [id number] N/A Old Surety Life Old [employer] Life [id number] Thursday, 2014 Medicare Part A Medicare - Lab/ay [id number] N/A BCBS Bcbs [facility] [id number] November [facility] [id number] Saturday, October 03, 2009 BCBS Bcbs [facility] [id number] Tuesday, May 24, 2011 Medicare Part B Medicare Of [place] [id number] Monday, October 03, 2011 [employer] [id number] Tuesday, October 18, 2011 Medicare Part A Medicare Part A [id number] N/A [facility] [id number] N/A Cigna Medicare Supplement [employer] [id number] Sunday, December 01, 2013 History of Encounters Visit Date Visit Type Provider 05/06/2016 Office visit Galdino Lim MD 03/15/2016 Office visit Galdino Lim MD 12/23/2015 Office visit Galdino Lim MD 12/03/2015 Office visit Russell Shirley SIN 10/08/2015 Office visit Galdino Lim MD 04/24/2015 [...]
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
--- OUTSIDE RECORDS SUMMARY | 2017-10-10 13:53 | XMS REPORT ---
Author Author Galdino Lim [facility] Address [address] [place], [place] [id number] Care Team Providers Care Database Security Administrator Name Role Phone Galdino Lim PCP Unavailable [...] 1 TABLET BY MOUTH IN THE MORNING True Metrix Glucose Meter miscellaneous [facility] 02/01/2017 use as directed. Test blood sugars [...] 30 days metformin 500 mg oral tablet 07/25/2017 12/22/2017 TAKE 1 TABLET BY MOUTH IN THE [...] dailyICD-9 250.00 Trilipix 135 mg oral capsule,delayed release(/EC) 08/09/2012 09/08/2012 TAKE 1 CAPSULE BY MOUTH [...] capsules by oral route daily d/c'd at [facility] magnesium 100 mg oral capsule 01/13/2017 take [...] A DAY IN THE MORNING d/c'd at [facility] sulfamethoxazole-trimethoprim 800-160 mg oral tablet 03/02/2016 03/15/2016 TAKE 1 TABLET BY MOUTH EVERY 12 HOURS FOR 7 DAYS Problem List Description Status Onset Diabetes Mellitus, Type II Active Heart disease Active Hypertension Active Hyperlipidemia Active Vital Signs Date Time BP-Sys(mm[Hg] BP-Rebecca(mm[Hg]) HR(bpm) RR(rpm) Temp WT HT HC BMI BSA BMI Percentile O2 Sat(%) 07/26/2017 3:05:00 PM 128 mmHg 76 mmHg 93 bpm 16 rpm 97 F 186.125 lbs 96 % 01/13/2017 11:07:00 AM 116 mmHg 68 mmHg [...] F 184 lbs 69.5 in 26.7822 kg/m 2.02 m2 10/17/2013 8:49:00 AM 134 mmHg 72 mmHg 88 bpm 18 rpm 99.1 F 183 lbs 69.5 in 26.64 kg/m2 2.0175 m 09/12/2013 9:54:00 AM 148 mmHg 74 mmHg 94 bpm 20 rpm 97.4 F 181 lbs 69.5 in 26.3456 kg/m 2.01 m2 06/06/2013 10:13:00 AM 140 mmHg 82 mmHg 78 bpm 18 rpm 98.4 F 182 lbs 69.5 in 26.49 kg/m2 2.012 m 05/18/2013 9:26:00 AM 138 mmHg 82 mmHg 80 bpm 18 rpm 98.2 F 187 lbs 69.5 in 27.2189 kg/m 2.04 m2 03/16/2013 11:24:00 AM 136 mmHg 78 mmHg 80 bpm 18 rpm 98.2 F 186 lbs 69.5 in 27.07 kg/m2 2.034 m 11/15/2012 10:07:00 AM 138 mmHg 80 mmHg 82 bpm 18 rpm 98.5 F 189 lbs 69.5 in 27.51 kg/m 2.05 m2 07/12/2012 9:45:00 AM 138 mmHg 80 mmHg 78 bpm 18 rpm 97.8 F 190 lbs 69.5 in 27.66 kg/m2 2.0557 m 03/01/2012 10:46:00 AM 128 mmHg [...] Reviewed 07/20/2012 12:00 AM MAMMOGRAM SCREENING Reviewed 07/21/2017 12:00 AM COMPLETE CBC W/AUTO DIFF WBC Returned 07/21/2017 12:00 AM COMPREHEN METABOLIC PANEL Returned 07/21/2017 12:00 AM LIPID PANEL Returned 07/21/2017 12:00 AM GLYCOSYLATED HEMOGLOBIN TEST Returned 10/30/2012 12:00 AM ROUTINE VENIPUNCTURE Reviewed 10/30/2012 [...] 2017 12:40PM Hyperlipidemia Jul 21 2017 12:40PM Diabetes Mellitus, Type II Jul 26 2017 3:06PM Payers Insurance Name Company Name Plan Name Plan Number Policy Number Policy Group Number Start Date Medicare RHC Medicare RHC [id number] N/A Old Surety Life [employer] Life [id number] Thursday, 2014 Medicare Part A Medicare - Lab/Xray [id number] N/A BCBS B[facility] [place] [id number] November [facility] [id number] Saturday, October 03, 2009 BCBS Bcbs [place] [id number] Tuesday, May 24, 2011 Medicare Part B Medicare Of [place] [id number] Monday, October 03, 2011 [employer] [id number] Tuesday, October 18, 2011 Medicare Part A Medicare Part A [id number] N/A [facility] [id number] N/A Cigna Medicare Supplement [facility] [id number] Sunday, December 01, 2013 History of Encounters Visit Date Visit Type Provider 07/26/2017 Office visit Galdino Lim MD 01/13/2017 Office visit Galdino Lim MD 01/04/2017 [...]
--- OUTSIDE RECORDS SUMMARY | 2017-10-10 13:55 | XMS REPORT ---
Author Author Galdino Lim [facility] Address [address] [place], [place] [phone] Care Team Providers Care Dealer Accounts Investigator Name Role Phone Galdino Lim PCP Unavailable Allergies and Adverse Reactions Name Reaction Notes NO KNOWN DRUG ALLERGIES Plan of Treatment Planned Activity Comments Planned Date Planned Time Plan/Goal FIBRIN DEGRADATION QUANT 12/03/2015 12:00 AM MRI JNT OF LWR EXTRE W/O DYE 12/29/2015 12:00 AM COMPLETE CBC W/AUTO DIFF WBC 03/15/2016 12:00 AM COMPREHEN METABOLIC PANEL 03/15/2016 12:00 AM GLYCOSYLATED HEMOGLOBIN TEST 03/15/2016 12:00 AM Medications Active Name Start Date [...] TABLET ONCE A DAY IN THE MORNING Diflucan 150 mg oral tablet 03/15/2016 03/25/2016 take 1 tablet (150 mg) by oral route once for 2 days Name Start Date Expiration Date SIG [...] route every 12 hours for 7 days Discontinued Name Start Date Discontinued Date [...] HC BMI BSA BMI Percentile O2 Sat(%) 03/15/2016 1:25:00 PM 110 mmHg 58 mmHg [...] 07/04/2015 12:00 AM MAMMOGRAM BOTH BREASTS Returned 09/18/2015 12:00 AM COMPLETE CBC W/AUTO DIFF WBC Reviewed 09/18/2015 12:00 AM COMPREHEN METABOLIC PANEL Reviewed 09/18/2015 12:00 AM LIPID PANEL Reviewed 09/18/2015 12:00 AM GLYCOSYLATED HEMOGLOBIN TEST Reviewed 12/03/2015 12:00 AM COMPLETE CBC W/AUTO DIFF WBC Returned 12/03/2015 12:00 AM COMPREHEN METABOLIC PANEL Returned 12/03/2015 12:00 AM X-RAY EXAM OF LOWER LEG Returned 10/18/2011 12:00 AM COMPLETE CBC W/AUTO [...] BILI 0.40 mg/dLCALCIUM 9.40 mg/dLeGFR >60 mL/min/1.73 [id number] 256.0 mg/dLCHOLESTEROL 244.0 mg/dLHDL 40.0 mg/dLLDL (CALC) 153.0 mg/dLGLYCOHEMOGLOBIN A1C 7.60 % 03/01/2012 [...] g/dLTOTAL BILI 0.30 mg/dLCALCIUM 9.60 mg/dLeGFR 60 GLYCOHEMOGLOBIN A1C 7.10 %TRIGLYCERIDES 247.0 mg/dLCHOLESTEROL 239.0 mg/dLHDL 45.0 mg/dLLDL (CALC) 145.0 mg/dL [...] dLCHOLESTEROL 231.0 mg/dLHDL 45.0 mg/dLLDL (CALC) 128.0 mg/dLGLYCOHEMOGLOBIN A1C 7.30 % 11/06/2012 [...] 2.17 #MONO 0.38 #EOS 0.19 #BASO 0.04 GLYCOHEMOGLOBIN A1C 7.30 % 03/14/2013 9:08 AM [...] dLCHOLESTEROL 187.0 mg/dLHDL 43.0 mg/dLLDL (CALC) 101.0 mg/dLGLYCOHEMOGLOBIN A1C 7.30 % 09/04/2013 [...] BILI 0.50 mg/dLCALCIUM 10.0 mg/dLeGFR >60 mL/min/1.73 [id number] 182.0 mg/dLCHOLESTEROL 192.0 mg/dLHDL 45.0 mg/dLLDL (CALC) 111.0 mg/dLHGB A1C 7.10 %Est Avg Glucose 157.1 mg/dL 02/20/2014 9:20 AM GLUCOSE 122.0 mg/dLSODIUM 137.0 mmol/LPOTASSIUM 4.30 mmol/ LCHLORIDE 103.0 mmol/LCO2 26.0 mmol/LBUN 16.0 mg/dLCREATININE 0.80 mg/dLSGOT/ AST 22.0 IU/LSGPT/ALT 21.0 IU/LALK PHOS 56.0 IU/LTOTAL PROTEIN 6.40 g/dLALBUMIN 4.10 g/dLTOTAL BILI 0.60 mg/dLCALCIUM 9.30 mg/dLeGFR 60 TRIGLYCERIDES 176.0 mg/ dLCHOLESTEROL 187.0 mg/dLHDL 48.0 mg/dLLDL (CALC) 104.0 mg/dLHGB A1C 7.40 %Est Avg Glucose 165.7 mg/dLWBC 4.8 RBC 4.29 HGB 13.20 g/dLHCT 39.20 %MCV 91.0 fLMCH 30.80 pgMCHC 33.70 g/dLRDW CV 14.0 %MPV 11.70 fLPLT 285 %NEUT 53.40 %%LYMP 36.70 %%MONO 6.20 %%EOS 2.70 %%BASO 1.0 %#NEUT 2.57 #LYMP 1.77 #MONO 0.30 #EOS 0.13 #BASO 0.05 09/04/2014 8:38 AM WBC 5.6 RBC 4.24 HGB 12.90 g/dLHCT 39.40 %MCV 93.0 fLMCH 30.40 pgMCHC 32.70 g/dLRDW CV 13.50 %MPV 10.70 fLPLT 297 %NEUT 51.10 %%LYMP 38.60 %%MONO 5.40 %%EOS 3.80 %%BASO 1.10 %#NEUT 2.86 #LYMP 2.16 #MONO 0.30 #EOS 0.21 #BASO 0.06 HGB A1C 7.40 %Est Avg Glucose 165.7 mg/dLGLUCOSE 135.0 mg/ dLSODIUM 137.0 mmol/LPOTASSIUM 4.20 mmol/LCHLORIDE 101.0 mmol/LCO2 26.0 mmol/ LBUN 22.0 mg/dLCREATININE 0.90 mg/dLSGOT/AST 18.0 IU/LSGPT/ALT 19.0 IU/LALK PHOS 52.0 IU/LTOTAL PROTEIN 6.40 g/dLALBUMIN 4.10 g/dLTOTAL BILI 0.10 mg/ dLCALCIUM 9.40 mg/dLeGFR 60 TRIGLYCERIDES 159.0 mg/dLCHOLESTEROL 182.0 mg/dLHDL 36.0 mg/dLLDL (CALC) 114.0 mg/dL 12/20/2014 8:38 AM GLUCOSE [...] 2.10 #MONO 0.23 #EOS 0.18 #BASO 0.05 HGB A1C 7.70 % Est Avg Glucose 174.3 mg/dLTRIGLYCERIDES 257.0 mg/dLCHOLESTEROL 192.0 mg/dLHDL 41.0 mg/dLLDL (CALC) 100.0 mg/dL 04/23/2015 8:17 AM WBC [...] BILI 0.50 mg/dLCALCIUM 9.30 mg/dLeGFR >60 mL/min/1.73 [id number] A1c 7.0 %Estim. Avg Glu (eAG) 154 mg/dL 09/22/2015 9:15 AM GLUCOSE 130.0 mg/dLSODIUM 138.0 mmol/LPOTASSIUM 4.60 mmol/ LCHLORIDE 101.0 mmol/LCO2 26.0 mmol/LBUN 20.0 mg/dLCREATININE 0.80 mg/dLSGOT/ AST 16.0 IU/LSGPT/ALT 18.0 IU/LALK PHOS 59.0 IU/LTOTAL PROTEIN 6.10 g/dLALBUMIN 4.20 g/dLTOTAL BILI 0.40 mg/dLCALCIUM 9.10 mg/dLeGFR >60 mL/min/1.73mWBC 5.7 RBC 4.66 HGB 14.10 g/dLHCT 43.30 %MCV 93.0 fLMCH 30.30 pgMCHC 32.60 g/dLRDW CV 13.80 %MPV 10.90 fLPLT 311 %NEUT 54.70 %%LYMP 35.30 %%MONO 5.60 %%EOS 3.70 %% BASO 0.70 %#NEUT 3.12 #LYMP 2.01 #MONO 0.32 #EOS 0.21 #BASO 0.04 TRIGLYCERIDES 197.0 mg/dLCHOLESTEROL 188.0 mg/dLHDL 41.0 mg/dLLDL (CALC) 108.0 mg/ dLHemoglobin A1c 7.20 % 12/03/2015 5:55 PM D-DIMER QUANT 0.29 GLUCOSE 196.0 mg/dLSODIUM 137.0 mmol/ LPOTASSIUM 3.70 mmol/LCHLORIDE 99.0 mmol/LCO2 25.0 mmol/LBUN 24.0 mg/ dLCREATININE 1.0 mg/dLSGOT/AST 17.0 IU/LSGPT/ALT 20.0 IU/LALK PHOS 65.0 IU/ LTOTAL PROTEIN 6.60 g/dLALBUMIN 4.20 g/dLTOTAL BILI 0.20 mg/dLCALCIUM 9.80 mg/ dLeGFR 55 WBC 7.7 RBC 4.55 HGB 13.80 g/dLHCT 42.50 %MCV 93.0 fLMCH 30.30 pgMCHC 32.50 g/dLRDW CV 13.80 %MPV 10.70 fLPLT 353 %NEUT 60.40 %%LYMP 32.30 %%MONO 4.70 %%EOS 1.70 %%BASO 0.90 %#NEUT 4.67 #LYMP 2.49 #MONO 0.36 #EOS 0.13 #BASO 0.07 History Of Immunizations Not available. History of [...] 1:31PM Yeast vaginitis Mar 15 2016 1:31PM Payers Insurance Name Company Name Plan Name Plan Number Policy Number Policy Group Number Start Date Medicare Part A Medicare [facility] [id number] N/A Old Surety Life [employer] [id number] Thursday, 2014 Medicare Part A Medicare - Lab/ay [id number] N[id number] November [facility] [id number] Saturday, October 03, 2009 [facility] [id number] Tuesday, May 24, 2011 Medicare Part B Medicare Of [place] [id number] Monday, October 03, 2011 [employer] [id number] Tuesday, October 18, 2011 Medicare Part A Medicare Part A [id number] N/A [facility] [id number] N/A [facility] Medicare Supplement [employer] [id number] Sunday, December 01, 2013 History of Encounters Visit Date Visit Type Provider 03/15/2016 Office visit Galdino Lim MD 12/23/2015 [...]
--- OUTSIDE RECORDS SUMMARY | 2017-10-10 13:56 | XMS REPORT ---
Author Author Galdino Lim [facility] Address [address] [place], [place] [id number] Care Team Providers Care Graduate Intern Name Role Phone Galdino Lim PCP Unavailable Allergies and Adverse Reactions Name Reaction Notes NO KNOWN DRUG ALLERGIES Plan of Treatment Not available. Medications Active Name Start Date Estimated Completion [...] A DAY Lipitor 20 mg oral tablet 10/08/2015 02/05/2016 take 1 tablet (20 mg) by oral route once daily for 30 days cyclobenzaprine 10 mg oral tablet 10/08/2015 TAKE [...] IN THE MORNING Accu-Chek Softclix Lancets Miscellaneous [facility] 05/30/2012 05/20/2014 test BS dailyICD-9 250.00 Trilipix [...] HC BMI BSA BMI Percentile O2 Sat(%) 10/08/2015 10:08:00 AM 138 mmHg 70 mmHg [...] F 195 lbs 69.5 in 28.3833 kg/m 2.0826 m 01/31/2012 10:24:00 AM 142 mmHg 88 mmHg 01/31/2012 9:57:00 AM 154 mmHg 78 mmHg 92 bpm 20 rpm 97.6 F 194 lbs 69.5 in 28.2378 kg/m 2.0773 m 2011 10:04:00 AM 160 mmHg 78 mmHg 82 bpm 20 rpm 99.3 F 197 lbs 69.5 in 28.67 kg/m2 2.09 m2 10/18/2011 9:15:00 AM 154 mmHg 80 mmHg [...] 09/18/2015 12:00 AM GLYCOSYLATED HEMOGLOBIN TEST Reviewed 10/18/2011 [...] BILI 0.40 mg/dLCALCIUM 9.40 mg/dLeGFR >60 mL/min/1.73 [id number] 256.0 mg/dLCHOLESTEROL 244.0 mg/dLHDL 40.0 mg/dLLDL (CALC) [...] BILI 0.50 mg/dLCALCIUM 10.0 mg/dLeGFR >60 mL/min/1.73 [id number] 182.0 mg/dLCHOLESTEROL 192.0 mg/dLHDL 45.0 mg/dLLDL (CALC) [...] BILI 0.50 mg/dLCALCIUM 9.30 mg/dLeGFR >60 mL/min/1.73 h4Inrxj. Avg Glu (eAG) 154 mg/dL 09/22/2015 9:15 [...] mg/dLCHOLESTEROL 188.0 mg/dLHDL 41.0 mg/dLLDL (CALC) 108.0 mg/dL History Of Immunizations Not available. History [...] Mellitus, Type II Oct 08 2015 10:10AM Payers Insurance Name Company Name Plan Name Plan Number Policy Number Policy Group Number Start Date Medicare Part A Medicare Part A [id number] N/A Old Surety Life Old [employer]ty Life [id number] Thursday, 2014 [facility] [id number] N/A Cigna Medicare Supplement [place] [employer]ur [id number] Sunday, 2013 BCBS [place] [employer] [place] [id number] November [facility] [id number] Saturday, 2009 BCBS [place] [id number] Tuesday, 2011 Medicare Part B Medicare [facility] [id number] Monday, 2011 [employer] [id number] Tuesday, 2011 History of Encounters Visit Date Visit Type Provider 10/08/2015 Office visit Galdino Lim MD 04/24/2015 Office visit Galdino Lim MD 12/23/2014 Office visit Galdino Lim MD 10/09/2014 Office visit Galdino Lim MD 09/09/2014 Office visit Galdino iLm MD 03/04/2014 Office visit Galdino Lim MD [...]
--- OUTSIDE RECORDS SUMMARY | 2017-10-10 13:58 | XMS REPORT ---
Author Author Galdino Lim [facility] Address [address] [place], [place] [address] Care Team Providers Care Sales Development Specialist Name Role Phone Galdino Lim PCP Unavailable [...] THE EVENING True Metrix Glucose Meter miscellaneous [facility] 02/01/2017 use as directed. Test blood sugars [...] Number Policy Group Number Start Date Medicare [facility] [id number] N/A Old Surety Life [employer] Life [id number] Thursday, 2014 Medicare Part A Medicare - Lab/Xray [id number] N/A [facility] [id number] [facility] [id number] Saturday, October 03, 2009 [facility] [id number] Tuesday, May 24, 2011 Medicare Part B Medicare [facility] [id number] Monday, October 03, 2011 [employer] [id number] Tuesday, October 18, 2011 Medicare Part A Medicare Part A [id number] N/A [facility] [id number] N/A Cigna Medicare Supplement [facility] Life [employer]ur [id number] Sunday, December 01, 2013 History of Encounters Visit Date Visit Type Provider 01/13/2017 Office visit Galdino Lmi MD 01/04/2017 Hospital Eren Luz MD 01/01/2017 [...]
--- OUTSIDE RECORDS SUMMARY | 2017-10-10 13:59 | XMS REPORT | CCD ---
Author Author LAYNE CANTOR Unknown Address [address] [place] [address] Care Team Providers Care Banner Painter Name Role Phone KOKI BARNES, KIRTI WALLACE Attphys DEVYN KEENE, CARYN Mendez Prisurg A., SINDHU NASST J., KATHERINE NASST D., ADAM NASST R., SHARONDA Sutton NASST G., JENNIFER NASST W., MIRIAM Dean NASST F., SHAN NASST B., TALIA NASST S., BARBARA Galvez NASST C., MERRICK NASST K., CHRISTINE Galvez NASST Allergies Allergy Code Allergy Type Reaction Status No Known Allergies 0 Drug allergy Active Active Medications Medication Code Dose Units Frequency Route Modification Start Date/Time HYDROcodone bitartrate-acetaminophen 5MG-325MG Oral Tablet 123606 1 TABLET NEEDED EVERY 4 HR BY MOUTH 17:37 Prescription Detail 1 TABLET BY MOUTH NEEDED EVERY 4 HR Januvia 100MG Oral Tablet 150310 100 MILLIGRAMS DAILY BY MOUTH 01/10/2017 17:37 Prescription Detail 100 MILLIGRAMS BY MOUTH DAILY Polyethylene Glycol 3350 17GM/1Dose Oral Powder for Solution 081837 17 GRAM TWO TIMES A DAY BY MOUTH 2016 17:37 Prescription Detail 17 GRAM BY MOUTH TWO TIMES A DAY Docusate Sodium 100MG Oral Capsule, Liquid Filled 5073172 100 MILLIGRAMS TWO TIMES A DAY BY MOUTH 2016 17:36 Prescription Detail 100 MILLIGRAMS BY MOUTH TWO TIMES A DAY Fenofibrate 145MG Oral Tablet 918707 145 MILLIGRAMS BEDTIME BY MOUTH 01/10/2017 17:36 Prescription Detail 145 MILLIGRAMS BY MOUTH BEDTIME Lidoderm 5% Topical application Patch, Extended Release 5011483 1 PATCH DAILY TOPICAL APPLICATION 2016 17:36 Prescription Detail 1 PATCH TOPICAL APPLICATION DAILY Lisinopril 20MG Oral Tablet 415487 20 MILLIGRAMS DAILY BY MOUTH 01/10/2017 17:36 Prescription Detail 20 MILLIGRAMS BY MOUTH DAILY metFORMIN HCl 500MG Oral Tablet 438769 5117 MILLIGRAMS WITH SUPPER BY MOUTH 01/10/2017 17:36 Prescription Detail 1000 MILLIGRAMS BY MOUTH WITH SUPPER Zetia 10MG Oral Tablet 836530 10 MILLIGRAMS BEDTIME BY MOUTH 01/10/2017 17:36 Prescription Detail 10 MILLIGRAMS BY MOUTH BEDTIME Aspirin 325MG Oral Tablet, Enteric Coated 518686 325 MILLIGRAMS TWO TIMES A DAY BY MOUTH 01/10/2017 17: 35 Prescription Detail 325 MILLIGRAMS BY MOUTH TWO TIMES A DAY Atorvastatin Calcium 10MG Oral Tablet 563926 10 MILLIGRAMS DAILY BY MOUTH 01/10/2017 17:35 Prescription Detail 10 MILLIGRAMS BY MOUTH DAILY Citalopram Hydrobromide 20MG Oral Tablet 282369 40 MILLIGRAMS DAILY BY MOUTH 01/10/2017 17:35 Prescription Detail 40 MILLIGRAMS BY MOUTH DAILY Cyclobenzaprine HCl 10MG Oral Tablet 401593 10 MILLIGRAMS NEEDED EVERY 6 HR BY MOUTH 01/10/2017 17:35 Prescription Detail 10 MILLIGRAMS BY MOUTH NEEDED EVERY 6 HR Problems Problem Code Start Date Resolved Date Status Hip fracture 393523113 12/31/2016 Active Post op pain 094840967 12/31/2016 Active Procedures Procedure Code Procedure Type Date PT THERAPEUTIC ACT. ONE ON ONE EA [address] 01/01/2017 PT EVALUATION; LOW 911869303 SNOMED CT 01/01/2017 MRI PELVIS W/O CONTRAST 9016715 SNOMED CT 01/01/2017 CX CHEST [address] 01/01/2017 CT PELVIS W/O CONTRAST 64470667 SNOMED CT 12/31/2016 PELVIS;1V OR 2V 781010217 SNOMED CT 12/31/2016 HIP COMP MIN [address] 12/31/2016 BEDSIDE GLUCOSE 61208516 SNOMED CT 01/03/2017 [facility] 50056752 [facility] CT 01/02/2017 CBC W/ AUTO DIFF (RFLX MAN DIFF IF IND) 7972329 [facility] CT 01/02/2017 BEDSIDE GLUCOSE 86339366 [facility] 01/01/2017 COMPREHENSIVE METABOLIC PANEL 128400835 [facility] 2016 CBC W/ AUTO DIFF (RFLX MAN DIFF IF IND) 8401760 [facility] 01/01/2017 INCENTIVE SPIROMETRY EA 15 MINUTES 979217012 [facility] CT 10/2016 ^CBC W/AUTO DIFF 0087389 [facility] 01/02/2017 ^CBC W/AUTO DIFF 2515050 [facility] 01/01/2017 Results BEDSIDE GLUCOSE - Collect Date/Time: 01/03/2017 11:35 Test Name Code Test Result Test Units Test Ref Range GLUCOSE POCT 93 MG/DL L=70 H=100 BEDSIDE GLUCOSE - Collect Date/Time: 01/03/2017 04:58 Test Name Code Test Result Test Units Test Ref Range GLUCOSE POCT 136 MG/DL L=70 H=100 BEDSIDE GLUCOSE - Collect Date/Time: 01/02/2017 20:33 Test Name Code Test Result Test Units Test Ref Range GLUCOSE POCT 200 MG/DL L=70 H=100 BEDSIDE GLUCOSE - Collect Date/Time: 01/01/2017 06:20 Test Name Code Test Result Test Units Test Ref Range GLUCOSE POCT 155 MG/DL L=70 H=100 COMPREHENSIVE METABOLIC PANEL - Collect Date/Time: 01/01/2017 05:55 Test Name Code Test Result Test Units Test Ref Range GLUCOSE 2345-7 144 MG/DL L=70 H=100 SODIUM 2951-2 138 MEQ/L L=135 H=148 POTASSIUM 2823-3 3.8 MEQ/L L=3.5 H=5.3 CHLORIDE 2075-0 103 MEQ/L L=96 H=110 CO2 2028-9 25 MEQ/L L=22 H=29 BUN 3094-0 25 MG/DL L=8 H=22 CREATININE 2160-0 0.9 MG/DL L=0.6 H=1.6 SGOT/AST 1920-8 18 IU/L L=10 H=40 SGPT/ALT 1742-6 15 IU/L L=8 H=54 ALK PHOS 6768-6 49 IU/L L=35 H=115 TOTAL PROTEIN 2885-2 5.8 G/DL L=5.5 H=8.5 ALBUMIN 1751-7 3.5 G/DL L=3.1 H=5.4 TOTAL BILI 1975-2 0.4 MG/DL L=0.0 H=1.5 CALCIUM 54731-2 8.7 MG/DL L=8.2 H=10.6 AGE 47422-[age] yrs GFR NonAA 83602-0 62 GFR AA 10204-2 75 eGFR 35970-6 >60 N/A eGFR AA* 40641-4 >60 N/A CBC W/ AUTO DIFF (RFLX MAN DIFF IF IND) - Collect Date/Time: 01/02/2017 09:00 Test Name Code Test Result Test Units Test Ref Range WBC 05885-3 8.0 TH/CMM L=4.5 H=10.8 RBC 789-8 3.88 ML/CMM L=4.20 H=5.40 HGB 718-7 11.4 G/DL L=12.0 H=16.0 HCT 4544-3 36.3 % L=37.0 H=47.0 MCV 74165-2 94 FL L=81 H=99 MCH 53787-8 29.4 PG L=27.0 H=33.0 MCHC 08455-6 31.4 G/DL L=31.0 H=36[place]0 [place] [address]-6 45 FL L=36 H=50 [place] [address]-3 13.5 % L=0.0 H=14.8 MPV 35495-1 10.2 FL L=9.3 H=12.5 PLT 777-3 285 TH/CMM L=130 H=440 NRBC# 50182-7 0.00 TH/CMM L=0.00 H=0.00 NRBC% 65218-7 0.0 /100WBC L=0.0 H=2.0 %NEUT 92816-9 65.8 % %LYMP 93371-9 25.4 % %MONO 86258-4 5.4 % %EOS 35683-6 2.4 % %BASO 27304-7 0.5 % #NEUT 97777-9 5.28 TH/CMM L=2.10 H=8.20 #LYMP 83879-0 2.04 TH/CMM L=0.90 H=5.20 #MONO 65294-2 0.43 TH/CMM L=0.16 H=1.00 #EOS 19689-7 0.19 TH/CMM L=0.00 H=0.80 #BASO 54916-1 0.04 TH/CMM L=0.00 H=0.20 MANUAL DIFF 46071-2 NOT IND N/A CBC W/ AUTO DIFF (RFLX MAN DIFF IF IND) - Collect Date/Time: 01/01/2017 05:55 Test Name Code Test Result Test Units Test Ref Range WBC 54523-4 8.0 TH/CMM L=4.5 H=10.8 RBC 789-8 3.64 ML/CMM L=4.20 H=5.40 HGB 718-7 11.0 G/DL L=12.0 H=16.0 HCT 4544-3 33.6 % L=37.0 H=47.0 MCV 67103-9 92 FL L=81 H=99 MCH 57858-9 30.2 PG L=27.0 H=33.0 MCHC 40646-2 32.7 G/DL L=31.0 H=36[place] [address]-3 45 FL L=36 H=50 [place] [address]-6 13.3 % L=0.0 H=14.8 MPV 89968-4 10.2 FL L=9.3 H=12.5 PLT 777-3 268 TH/CMM L=130 H=440 NRBC# 85776-1 0.00 TH/CMM L=0.00 H=0.00 NRBC% 42421-7 0.0 /100WBC L=0.0 H=2.0 %NEUT 22619-7 65.8 % %LYMP 58169-7 24.2 % %MONO 76736-6 7.3 % %EOS 75871-9 1.6 % %BASO 44546-0 0.6 % #NEUT 56766-6 5.23 TH/CMM L=2.10 H=8.20 #LYMP 46303-6 1.93 TH/CMM L=0.90 H=5.20 #MONO 39223-8 0.58 TH/CMM L=0.16 H=1.00 #EOS 84037-3 0.13 TH/CMM L=0.00 H=0.80 #BASO 32851-5 0.05 TH/CMM L=0.00 H=0.20 MANUAL DIFF 74136-5 NOT IND N/A Function Status Unknown or Not Available. History of Immunizations Immunization Code Date influenza, split (incl. purified surface antigen) 15 07/07/2004 influenza, split (incl. purified surface antigen) 15 09/20/2005 Td (adult) preservative free 113 10/14/2009 Plan of Treatment Unknown or Not Available. Social History Smoking Status Code Start Date End Date Never smoker [id number] Vital Signs Vital Sign Value Unit Date/Time Recent/Initial? BP Systolic 122 mm[Hg] 01/01/2017 00:00 Initial VS BP Diastolic 64 mm[Hg] 01/01/2017 00:00 Initial VS Respiratory Rate 20 /min 01/01/2017 00:00 Initial VS Heart Rate 60 /min 01/01/2017 00:00 Initial VS O2 % BldC Oximetry 94 % 01/01/2017 00:00 Initial VS Body Temperature 98.9 [degF] 01/01/2017 00:00 Initial VS BMI (Body Mass Index) 0.15 kg/m2 01/01/2017 01:41 Initial VS Weight Measured 196.21 [lb_av] 01/01/2017 01:41 Initial VS Height 69 [in_i] 01/01/2017 01:41 Initial VS BSA (Body Surface Area) 2.08 m2 01/01/2017 01:41 Initial VS BMI (Body Mass Index) 28.06 kg/m2 01/02/2017 18:04 Most Recent VS Weight Measured 190 [lb_av] 01/02/2017 18:04 Most Recent VS Height 69 [in_i] 01/02/2017 18:04 Most Recent VS BSA (Body Surface Area) 2.05 m2 01/02/2017 18:04 Most Recent VS BP Systolic 136 mm[Hg] 01/03/2017 08:02 Most Recent VS BP Diastolic 73 mm[Hg] 01/03/2017 08:02 Most Recent VS Respiratory Rate 20 /min 01/03/2017 08:02 Most Recent VS Heart Rate 80 /min 01/03/2017 08:02 Most Recent VS O2 % BldC Oximetry 95 % 01/03/2017 08:02 Most Recent VS Body Temperature 98.2 [degF] 01/03/2017 08:02 Most Recent VS Function Status Unknown or Not Available. Goals Unknown or Not Available. ASSESSMENTS Unknown or Not Available. Health Concerns Section Unknown or Not Available.
[2017-10-10] MEDS ORDERED: fentaNYL INJECTION 100 MCG/2 ML AMP IVP ONE (14:00)
--- OUTSIDE RECORDS SUMMARY | 2017-10-10 14:00 | XMS REPORT ---
Author Author Galdino Lim [facility] Address [address] [place] [id number] Care Team Providers Care Sr. Director Product Management Name Role Phone Galdino Lim PCP Unavailable Allergies and Adverse Reactions Name Reaction Notes NO KNOWN DRUG ALLERGIES Plan of Treatment Planned Activity Comments Planned Date Planned Time Plan/Goal FIBRIN DEGRADATION QUANT 12/03/2015 12:00 AM MRI JNT OF LWR EXTRE W/O DYE 12/29/2015 12:00 AM Medications Active Name Start Date [...] ONCE A DAY Hylafem 05/10/2016 as directed Name Start Date Expiration Date SIG Comments [...] AM X-RAY EXAM OF LOWER LEG Returned 03/15/2016 12:00 AM COMPLETE CBC W/AUTO DIFF [...] BILI 0.40 mg/dLCALCIUM 9.40 mg/dLeGFR >60 mL/min/1.73 [id number] 256.0 mg/dLCHOLESTEROL 244.0 mg/dLHDL 40.0 mg/dLLDL (CALC) [...] 4.16 HGB 12.60 g/dLHCT 38.20 %MCV 92.0 fLH 30.30 pgHC 33.0 g/dLRDW CV 13.50 %MPV 10.80 fLPLT [...] 4.18 HGB 12.90 g/dLHCT 38.50 %MCV 92.0 fLH 30.90 [facility] 33.[facility] g/dLRDW CV 13.60 %MPV 11.0 fLPLT [...] BILI 0.50 mg/dLCALCIUM 10.0 mg/dLeGFR >60 mL/min/1.73 [id number] 182.0 mg/dLCHOLESTEROL 192.0 mg/dLHDL 45.0 mg/dLLDL (CALC) [...] BILI 0.50 mg/dLCALCIUM 9.30 mg/dLeGFR >60 mL/min/1.73 [id number] A1c 7.0 %Estim. Avg Glu (eAG) 154 [...] 2.49 #MONO 0.36 #EOS 0.13 #BASO 0.07 03/15/2016 2:08 PM WBC 6.6 RBC 4.42 HGB 13.30 g/dLHCT 40.60 %MCV 92.0 fLMCH 30.10 pgMCHC 32.80 g/dLRDW CV 13.50 %MPV 9.90 fLPLT 377 %NEUT 60.40 %%LYMP 30.0 %%MONO 6.10 %%EOS 2.10 %%BASO 1.10 %#NEUT 4.00 #LYMP 1.98 #MONO 0.40 #EOS 0.14 # BASO 0.07 GLUCOSE 183.0 mg/dLSODIUM 138.0 mmol/LPOTASSIUM 4.40 mmol/LCHLORIDE 100.0 mmol/LCO2 26.0 mmol/LBUN 23.0 mg/dLCREATININE 1.40 mg/dLSGOT/AST 17.0 IU/ LSGPT/ALT 22.0 IU/LALK PHOS 74.0 IU/LTOTAL PROTEIN 6.30 g/dLALBUMIN 4.30 g/ dLTOTAL BILI 0.20 mg/dLCALCIUM 9.90 mg/dLeGFR 37 Hemoglobin A1c 7.10 % History Of Immunizations Not available. History of [...] 1:34PM Yeast vaginitis May 06 2016 1:34PM Payers Insurance Name Company Name Plan Name Plan Number Policy Number Policy Group Number Start Date Medicare Part A Medicare C [id number] N/A Old Surety Life Old [employer] Life [id number] Thursday, 2014 Medicare Part A Medicare - Lab/Xray [id number] N/A BCBS Bcbs [facility] [id number] November [facility] [id number] Saturday, October 03, 2009 BCBS Bcbs [employer] [place] [id number] Tuesday, May 24, 2011 Medicare Part B Medicare Of [place] [id number] Monday, October 03, 2011 [employer] [id number] Tuesday, October 18, 2011 Medicare Part A Medicare Part A [id number] N/A [facility] [id number] N/A Cigna Medicare Supplement [place] [employer] Life Insur [id number] Sunday, December 01, 2013 History of Encounters [...]
--- OUTSIDE RECORDS SUMMARY | 2017-10-10 14:02 | XMS REPORT ---
Author Author Galdino Lim [facility] Address [address] [place], [place] [address] Care Team Providers Care Logistics Management Specialist Name Role Phone Galdino Lim PCP [...] TABLET BY MOUTH EVERY 8 HOURS NEEDED Januvia 100 mg oral tablet 10/21/2016 11/18/2016 take 1 tablet (100 mg) by oral route once daily for 28 days fenofibrate 160 mg oral tablet 10/21/2016 10/16/2017 take 1 tablet (160 mg) by oral route once daily for 90 days Name Start Date Expiration Date SIG [...] HC BMI BSA BMI Percentile O2 Sat(%) 10/21/2016 9:47:00 AM 128 mmHg 66 mmHg [...] AM COMPLETE CBC W/AUTO DIFF WBC Returned 10/14/2016 12:00 AM LIPID PANEL Returned 10/14/2016 12:00 AM GLYCOSYLATED HEMOGLOBIN TEST Returned 01/31/2012 12:00 AM COMPLETE CBC W/AUTO DIFF [...] Mellitus, Type II Oct 21 2016 9:51AM Payers Insurance Name Company Name Plan Name Plan Number Policy Number Policy Group Number Start Date Medicare RHC Medicare RHC [id number] N/A Old Surety Life Old [employer]ty Life [id number] Thursday, 2014 Medicare Part A Medicare - Lab/ay [id number] N[facility] [id number] November [facility] [id number] Saturday, October 03, 2009 [facility] [id number] Tuesday, May 24, 2011 Medicare Part B Medicare Of [place] [id number] Monday, October 03, 2011 [employer] [id number] Tuesday, October 18, 2011 Medicare Part A Medicare Part A [id number] N/A [facility] [id number] N/A [facility] Medicare Supplement [facility] Life Insur [id number] Sunday, December 01, 2013 History of Encounters Visit Date Visit Type Provider 10/21/2016 Office visit Galdino Lim MD 05/06/2016 [...]
--- OUTSIDE RECORDS SUMMARY | 2017-10-10 14:04 | XMS REPORT ---
Author Author Galdino Lim [facility] Address [address] [place], [place] [address] Care Team Providers Care Tile Presser Name Role Phone Galdino Lim PCP Unavailable [...] A DAY metformin 500 mg oral tablet 12/31/2014 TAKE [...] IN THE MORNING Accu-Chek Softclix Lancets Miscellaneous Mis 05/30/2012 05/20/2014 [...] route once daily for 90 days Lexapro 10 mg oral tablet 12/23/2014 12/18/2015 take 1 tablet by oral route daily for 90 days Discontinued Name Start [...] oral route once daily for 90 days Problem List Description Status Onset Diabetes Mellitus, Type II Active Heart disease Active Hypertension Active Hyperlipidemia Active Vital Signs Date Time BP-Sys(mm[Hg] BP-Rebecca(mm[Hg]) HR(bpm) RR(rpm) Temp WT HT HC BMI BSA BMI Percentile O2 Sat(%) 12/23/2015 9:33:00 AM 122 mmHg 70 mmHg [...] BILI 0.40 mg/dLCALCIUM 9.40 mg/dLeGFR >60 mL/min/1.73 [id number] 256.0 mg/dLCHOLESTEROL 244.0 mg/dLHDL 40.0 mg/dLLDL (CALC) [...] BILI 0.50 mg/dLCALCIUM 10.0 mg/dLeGFR >60 mL/min/1.73 [id number] 182.0 mg/dLCHOLESTEROL 192.0 mg/dLHDL 45.0 mg/dLLDL (CALC) [...] BILI 0.50 mg/dLCALCIUM 9.30 mg/dLeGFR >60 mL/min/1.73 a2Pyjqb. Avg Glu (eAG) 154 mg/dL 09/22/2015 9:15 [...] 13.80 g/dLHCT 42.50 %MCV 93.0 fLMCH 30.30 pgHC 32.50 g/dLRDW CV 13.80 %MPV 10.70 fLPLT [...] Knee pain, right Dec 23 2015 9:38AM Payers Insurance Name Company Name Plan Name Plan Number Policy Number Policy Group Number Start Date Medicare Part A Medicare Part A [id number] N/A Old Surety Life Old [employer]ty Life [id number] Thursday, 2014 [facility] [id number] N/A Cigna Medicare Supplement [place] [employer] Insur [id number] Sunday, 2013 [facility] [id number] November [facility] [id number] Saturday, 2009 BCBS Bcbs Of [place] [id number] Tuesday, 2011 Medicare Part B Medicare Of [place] [id number] Monday, 2011 [employer] [id number] Tuesday, 2011 History of Encounters Visit Date Visit Type Provider 12/23/2015 Office visit Galdino Lim MD 12/03/2015 [...]
--- OUTSIDE RECORDS SUMMARY | 2017-10-10 14:05 | XMS REPORT ---
Author Author Galdino Lim [facility] Address [address] [place], [place] [address] Care Team Providers Care Tree Farmer Name Role Phone Galdino Lim PCP Unavailable Allergies and Adverse Reactions Name Reaction Notes NO KNOWN DRUG ALLERGIES Plan of Treatment Planned Activity Comments Planned Date Planned Time Plan/Goal MAMMOGRAM BOTH BREASTS 07/04/2015 12:00 AM Medications Active Name Start Date [...] IN THE MORNING Accu-Chek Softclix Lancets Miscellaneous [facility] 05/30/2012 05/20/2014 test BS dailyICD-9 250.00 Trilipix [...] of Procedures Date Ordered Description Order Status 10/18/2011 12:00 AM COMPLETE CBC W/AUTO DIFF [...] BILI 0.40 mg/dLCALCIUM 9.40 mg/dLeGFR >60 mL/min/1.73 [id number] 256.0 mg/dLCHOLESTEROL 244.0 mg/dLHDL 40.0 mg/dLLDL (CALC) [...] 12.90 g/dLHCT 38.50 %MCV 92.0 fLH 30.90 [facility] 33.[facility] g/dLRDW CV 13.60 %MPV 11.0 fLPLT [...] BILI 0.50 mg/dLCALCIUM 10.0 mg/dLeGFR >60 mL/min/1.73 [id number] 182.0 mg/dLCHOLESTEROL 192.0 mg/dLHDL 45.0 mg/dLLDL (CALC) [...] BILI 0.50 mg/dLCALCIUM 9.30 mg/dLeGFR >60 mL/min/1.73 [id number] A1c 7.0 %Estim. Avg Glu (eAG) 154 mg/dL History Of [...] other screening mammogram Jul 04 2015 11:56AM Payers Insurance Name Company Name Plan Name Plan Number Policy Number Policy Group Number Start Date Medicare Part A Medicare Part A [id number] N/A Old Surety Life Old Surety Life [id number] Thursday, 2014 [facility] [id number] N/A Cigna Medicare Supplement [facility] Life Insur [id number] Sunday, 2013 Bcbs B[employer] [place] [id number] November [facility] [id number] Saturday, 2009 Bcbs B[employer] [place] [id number] Tuesday, 2011 Medicare Part B Medicare Of [place] [id number] Monday, 2011 [employer] [id number] Tuesday, 2011 History of Encounters Visit Date [...]
--- OUTSIDE RECORDS SUMMARY | 2017-10-10 14:07 | XMS REPORT ---
Author Russell Toledo [facility] Address [address] [place], [place] [address] Care Team Providers Care Systems Software Manager Name Role Phone Russell Watson PCP Allergies and Adverse Reactions Name Reaction Notes NO KNOWN DRUG ALLERGIES Plan of Treatment Planned Activity Comments Planned Date Planned Time Plan/Goal FIBRIN DEGRADATION QUANT 12/03/2015 12:00 AM X-RAY EXAM OF LOWER LEG 12/03/2015 12:00 AM Medications Active Name Start Date [...] HC BMI BSA BMI Percentile O2 Sat(%) 12/03/2015 5:19:00 PM 132 mmHg 64 mmHg [...] 12/03/2015 12:00 AM COMPREHEN METABOLIC PANEL Returned 10/18/2011 12:00 AM COMPLETE CBC W/AUTO [...] BILI 0.40 mg/dLCALCIUM 9.40 mg/dLeGFR >60 mL/min/1.73 [id number] 256.0 mg/dLCHOLESTEROL 244.0 mg/dLHDL 40.0 mg/dLLDL (CALC) [...] BILI 0.50 mg/dLCALCIUM 10.0 mg/dLeGFR >60 mL/min/1.73 [id number] 182.0 mg/dLCHOLESTEROL 192.0 mg/dLHDL 45.0 mg/dLLDL (CALC) [...] BILI 0.50 mg/dLCALCIUM 9.30 mg/dLeGFR >60 mL/min/1.73 y4Gljpb. Avg Glu (eAG) 154 mg/dL 09/22/2015 9:15 [...] 188.0 mg/dLHDL 41.0 mg/dLLDL (CALC) 108.0 mg/dL 12/03/2015 5:55 PM D-DIMER QUANT 0.29 GLUCOSE [...] Right calf pain Dec 03 2015 5:21PM Payers Insurance Name Company Name Plan Name Plan Number Policy Number Policy Group Number Start Date Medicare Part A Medicare Part A [id number] N/A [employer] [id number] Thursday, 2014 [facility] [id number] N/A [employer] Medicare Supplement [place] [employer] [id number] Sunday, 2013 [facility] [id number] November [facility] [id number] Saturday, 2009 [employer] [id number] Tuesday, 2011 Medicare [place] [id number] Monday, 2011 [employer] [id number] Tuesday, 2011 History of Encounters Visit Date Visit Type Provider 12/03/2015 Office visit Russell Watson APRN 10/08/2015 [...]
--- OUTSIDE RECORDS SUMMARY | 2017-10-10 14:08 | XMS REPORT ---
Author Author Galdino Lim [facility] Address [address] [place], [place] [id number] Care Team Providers Care Crm Analyst Name Role Phone Galdino Lim PCP Unavailable Allergies and Adverse Reactions Name Reaction Notes NO KNOWN DRUG ALLERGIES Plan of Treatment Not available. Medications Active Name Start Date Estimated Completion Date SIG Comments Fish Oil Oral Capsule 1,000 mg take 2 capsules by oral route daily Magnesium Oral Capsule 100 mg take 1 capsule by oral route daily Crestor Oral tablet 5 mg take 1 tablet (5 mg) by oral route once daily Onglyza oral tablet 5 mg take 1 tablet (5 mg) by oral route once daily for 30 days metformin oral tablet 500 mg 02/27/2014 TAKE 1 TABLET BY MOUTH ONCE A DAY IN THE MORNING AND 2 IN THE EVENING metformin oral tablet 500 mg 08/01/2014 TAKE 1 TABLET BY MOUTH IN THE MORNING AND 2 TABS IN THE EVENING Tricor oral tablet 145 mg 08/13/2014 take 1 tablet (145 mg) by oral route once daily for 90 days cyclobenzaprine oral tablet 10 mg 09/04/2014 TAKE ONE TABLET BY MOUTH EVERY 8 HOURS NEEDED Accu-Chek Compact Plus Test miscellaneous strip 10/01/2014 test BS daily lisinopril-hydrochlorothiazide oral tablet 20-25 mg 10/09/2014 TAKE 1 TABLET ONCE A DAY IN THE MORNING Zetia oral tablet 10 mg 10/09/2014 01/02/2016 TAKE 1 TABLET BY MOUTH ONCE A DAY Lexapro oral tablet 10 mg 12/23/2014 12/18/2015 take 1 tablet by oral route daily for 90 days metformin oral tablet 500 mg 12/31/2014 TAKE 1 TABLET BY MOUTH IN THE MORNING AND 2 TABS IN THE EVENING Farxiga oral tablet 10 mg 04/28/2015 take 1 tablet (10 mg) by oral route once daily in the morning Name Start Date Expiration Date SIG Comments Kayexalate Oral Powder 03/10/2010 03/11/2010 take 30 gms today. Flexeril Oral Tablet 10 mg 09/07/2010 01/05/2011 take 1 tablet (10 mg) by oral route 3 times per day for 30 days cyclobenzaprine Oral Tablet 10 mg 09/06/2011 10/06/2011 TAKE 1 TABLET BY MOUTH THREE TIMES A DAY Zithromax Z-Tyrese Oral Tablet 250 mg 10/18/2011 10/28/2011 take 2 tablets (500 mg) by oral route once daily for 1 day then 1 tablet (250 mg) by oral route once daily for 4 days Accu-Chek Compact Test Miscellaneous Strip 01/03/2012 02/02/2012 CHECK ONCE DAILY amoxicillin Oral Capsule 500 mg 01/31/2012 02/10/2012 take 2 capsules by oral route 3 times a day for 5 days lisinopril-hydrochlorothiazide Oral Tablet 20-25 mg 03/14/2012 04/13/2012 TAKE 1 TABLET ONCE A DAY IN THE MORNING Accu-Chek Softclix Lancets Miscellaneous [facility] 05/30/2012 05/20/2014 test BS dailyICD-9 250.00 Trilipix Oral capsule,delayed release(DR/EC) 135 mg 08/09/2012 09/08/2012 TAKE 1 CAPSULE BY MOUTH ONCE A DAY metformin Oral tablet 500 mg 08/06/2013 09/05/2013 TAKE 1 TABLET BY MOUTH DAILY IN THE MORNING AND 2 IN THE EVENING Tricor oral tablet 145 mg 10/17/2013 10/12/2014 take 1 tablet (145 mg) by oral route once daily for 90 days Discontinued Name Start Date Discontinued Date SIG Comments Potassium Oral Tablet 99 mg 03/10/2010 take 1 tablet by oral route daily Hair Vitamins Oral Tablet 05/18/2013 take 1 tablet by oral route once daily with food Indomethacin Oral Capsule 50 mg 03/05/2010 05/18/2013 take 1 capsule by oral route 3 times a day as needed Lipitor Oral Tablet 20 mg 09/07/2010 07/26/2011 take 1 tablet (20 mg) by once a week. Crestor Oral Tablet 10 mg 05/24/2011 07/26/2011 take 1 tablet by oral route every other day tramadol Oral Tablet 50 mg 07/26/2011 05/18/2013 take 1 tablet (50 mg) by oral route every 4-6 hours as needed Zetia Oral Tablet 10 mg 10/04/2012 take 1 tablet (10 mg) by oral route once daily deleted Lipitor Oral tablet 20 mg 03/16/2013 06/06/2013 take 1 tablet (20 mg) by oral route once daily Januvia Oral tablet 100 mg 06/06/2013 09/09/2014 take 1 tablet (100 mg) by oral route once daily Zithromax Z-Tyrese Oral Tablet 250 mg 09/12/2013 10/17/2013 take 2 tablets (500 mg) [...] BILI 0.40 mg/dLCALCIUM 9.40 mg/dLeGFR >60 mL/min/1.73 [id number] 256.0 mg/dLCHOLESTEROL 244.0 mg/dLHDL 40.0 mg/dLLDL (CALC) [...] BILI 0.50 mg/dLCALCIUM 10.0 mg/dLeGFR >60 mL/min/1.73 [id number] 182.0 mg/dLCHOLESTEROL 192.0 mg/dLHDL 45.0 mg/dLLDL (CALC) [...] BILI 0.50 mg/dLCALCIUM 9.30 mg/dLeGFR >60 mL/min/1.73 [id number] A1c 7.0 %Estim. Avg Glu (eAG) 154 [...] Mellitus, Type II Apr 24 2015 3:36PM Payers Insurance Name Company Name Plan Name Plan Number Policy Number Policy Group Number Start Date Medicare Part A Medicare Part A [id number] N/A [employer] [id number] Thursday, 2014 [facility] [id number] N/A Cigna Medicare Supplement [place] [employer] [id number] Sunday, 2013 [id number] [id number] Saturday, 2009 [id number] Tuesday, 2011 Medicare Part B Medicare Of [place] [id number] Monday, 2011 [employer] [id number] Tuesday, 2011 History of Encounters Visit Date [...] 03/05/2010 Office visit Galdino Lim MD 02/11/2010 Office visit Galdino Lim MD 02/11/2010 Laboratory eSverino Lopez MD 10/14/2009 Nurse visit Galdino Lim MD 08/25/2009 Office visit Galdino Lim MD 08/20/2009 Laboratory Galdino Lim MD
--- OUTSIDE RECORDS SUMMARY | 2017-10-10 14:09 | XMS REPORT | Continuity of Care Document ---
Author Author [facility] Organization [facility] Address Unknown Phone Unavailable Allergies Active Description Code Type Severity Reaction Onset Reported/Identified Relationship to Patient Clinical Status Yes No Known Allergies No Known Allergies Drug Allergy Unknown N/A 2013 Yes No Known Drug Allergies No Known Drug Allergies Drug Allergy Unknown . 11/2013 Medications There is no data. Problems There is no data. Procedures Code Description Performed By Performed On .54 DETACH RETINA LASER COAG Jose Maria BARNES, Hossein P 06/13/2013 14.74 [facility] V[facility] Moise MD, Hossein P 06/13/2013 14.74 [facility] VIT[facility] Moise MD, Hossein P 06/05/2014 14.79 VITREOUS OPERATION NILTON Moise MD, Hossein Landry 06/05/2014 Results Test Result Range HEMOGLOBIN - 06/13/13 13:30 MEAN CELL VOLUME 92.9 fl 80.0-100.0 HEMOGLOBIN 13.2 gm/dL 12.0-16.0 METABOLIC PANEL, BASIC - 06/13/13 13:30 POTASSIUM 4.3 mmol/L 3.5-5.3 EST GFR (MDRD) 59 mL/min > 59 ANION GAP 7 mmol/L 5-15 EST CrCl (CG) 58 mL/min > 59 GLUCOSE 130 mg/dL 70-99 CALCIUM 9.2 mg/dL 8.5-10.1 BLOOD UREA NITROGEN 16 mg/dL 7-20 CREATININE 1.0 mg/dL 0.6-1.0 SODIUM 138 mmol/L 135-148 CHLORIDE 103 mmol/L 98-110 CARBON DIOXIDE 28 mmol/L 21-32 GLUCOSE (POC) - 06/13/13 13:31 GLUCOSE (POC) 120 mg/dL 70-99 GLUCOSE (POC) - 06/13/13 16:52 GLUCOSE (POC) 115 mg/dL 70-99 HEMOGLOBIN - 06/05/14 12:36 MEAN CELL VOLUME 92.3 fl 80.0-100.0 HEMOGLOBIN 13.4 gm/dL 12.0-16.0 METABOLIC PANEL, BASIC - 06/05/14 12:36 POTASSIUM 4.0 mmol/L 3.5-5.3 EST GFR (MDRD) 59 mL/min > 59 ANION GAP 10 mmol/L 5-15 EST CrCl (CG) 57 mL/min > 59 GLUCOSE 139 mg/dL 70-99 CALCIUM 9.0 mg/dL 8.5-10.1 BLOOD UREA NITROGEN 16 mg/dL 7-20 CREATININE 1.0 mg/dL 0.6-1.0 SODIUM 139 mmol/L 135-148 CHLORIDE 101 mmol/L 98-110 CARBON DIOXIDE 28 mmol/L 21-32 GLUCOSE (POC) - 06/05/14 12:44 GLUCOSE (POC) 131 mg/dL 70-99 GLUCOSE (POC) - 06/05/14 15:49 GLUCOSE (POC) 130 mg/dL 70-99 Encounters ACCT No. Visit Date/Time Discharge Status Pt. Type Provider Facility Loc./Unit Complaint [id number] 06/05/2014 12:08:00 06/05/2014 16:32:00 DIS Outpatient Jose Maria BARNES, Hossein [facility] W.OPRA [id number] 06/13/2013 12:33:00 06/13/2013 17:40:00 DIS Outpatient Jose Maria BARNES, Hossein [facility] W.OPRA [id number] 07/26/2017 15:55:54 07/26/2017 23:59:59 CLS Outpatient Galdino Lim [id number] 03/10/2017 11:09:58 03/10/2017 23:59:59 CLS Outpatient Flor Hay [id number] 01/25/2017 16:53:21 01/25/2017 23:59:59 CLS Outpatient Eren Luz [id number] 01/13/2017 11:51:00 01/13/2017 23:59:59 CLS Outpatient Galdino Lim [id number] 12/08/2016 11:34:31 12/08/2016 23:59:59 CLS Outpatient Galdino Lim [id number] 10/21/2016 10:38:09 10/21/2016 23:59:59 CLS Outpatient Galdino Lim [id number] 05/06/2016 14:26:07 05/06/2016 23:59:59 CLS Outpatient Galdino Lim [id number] 12/23/2015 10:12:41 12/23/2015 23:59:59 CLS Outpatient HetlingerGaldino [id number] 12/03/2015 18:01:24 12/03/2015 23:59:59 CLS Outpatient Russell Watson [id number] 10/08/2015 10:41:40 10/08/2015 23:59:59 CLS Outpatient HetlingerGaldino [id number] 05/12/2015 22:22:38 05/12/2015 23:59:59 CLS Outpatient HetlingGaldino albert [id number] 12/23/2014 15:32:21 12/23/2014 23:59:59 CLS Outpatient HetlingGaldino albert [id number] 10/09/2014 10:23:58 10/09/2014 23:59:59 CLS Outpatient HetlingerGaldino [id number] 09/09/2014 11:25:25 09/09/2014 23:59:59 CLS Outpatient HetGaldino baig [id number] 03/04/2014 10:07:03 03/04/2014 23:59:59 JUAN Outpatient Galdino Lim [id number] 11/14/2013 10:26:23 11/14/2013 23:59:59 CLS Outpatient HetlingGaldino albert [id number] 10/17/2013 09:43:37 10/17/2013 23:59:59 JUAN Outpatient Galdino Lim
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
--- NOTE | 2017-10-10 15:03 | Diagnostic Imaging Report ---
INDICATION: Knee pain. TECHNIQUE: Four views were obtained. FINDINGS: There is a minimally displaced fracture through the distal fibula. There is no other fracture or dislocation. The soft tissues are unremarkable. IMPRESSION: Minimally displaced fracture through the distal fibular diaphysis. Fracture line appears to extend to just above the ankle mortise. Dictated by: Dictated on workstation # [id number]
[2017-10-10] MEDS ORDERED: HYDR-757 PO (15:09)
[2017-10-10 15:15] VITALS: BP 129/68
== END 2017-10-10 15:45 | disposition home or self-care (01) ==
LOC: ER 13:39
DX: S82.832A Other fracture of upper and lower end of left fibula, initial encounter for closed fracture (principal); V49.40XA Driver injured in collision with unspecified motor vehicles in traffic accident, initial encounter
CPT/HCPCS: 29515; 71046; 73590; 73630; 96374